=== PATIENT | male | born 1950 | race Caucasian/White ===

== ENCOUNTER 2016-10-16 16:38 | Inpatient (IN) | payer MEDICARE ==
[~2016-10-16] VITALS: Ht 172.7 cm; Wt 92.3 kg
[2016-10-16 17:52] LABS: HEMOGLOBIN 12.7 g/dL (13.5-17.5); MCH 32.5 pg (26.0-34.0); MCHC 34.3 g/dL (31.0-37.0); MCV 94.6 fL (80.0-100.0); MEAN PLATELET VOLUME 11.5 fL (7.4-10.4); RBC 3.91 10x6/uL (4.20-6.10); RDW 12.5 % (11.5-14.5); WBC 14.9 10x3/uL (4.8-10.8)
[2016-10-16 17:54] LABS: PLATELET COUNT 285 10x3/uL (130-400)
[2016-10-16] MEDS ORDERED: TYLENOL W/CODEI1 TAB PO (18:00)
[2016-10-16] MEDS ORDERED: LIPITOR20 MG PO (18:01)
[2016-10-16] MEDS ORDERED: NEURONTIN600 MG PO (18:02)
[2016-10-16] MEDS ORDERED: GLUCOPHAGE1000 MG PO (18:02)
[2016-10-16] MEDS ORDERED: GLUCOTROL ER2.5 MG PO (18:03)
[2016-10-16 18:04] LABS: ANION GAP 17.9 mmol/L (8-16); CALCIUM 9.3 mg/dL (8.5-10.1); CARBON DIOXIDE 23.9 mmol/L (21.0-32.0); CREATININE - SERUM 1.2 mg/dL (0.6-1.3); POTASSIUM - SERUM 4.8 mmol/L (3.5-5.1)
[2016-10-16] MEDS ORDERED: LOPID600 MG PO (18:04)
[2016-10-16] MEDS ORDERED: TRADJENTA5 MG PO (18:04)
[2016-10-16] MEDS ORDERED: BAYER CHEWABLE81 MG PO (18:04)
[2016-10-16 18:14] VITALS: BP 162/74; Ht 172.7 cm; Wt 92.3 kg
[2016-10-16 19:02] LABS: LYMPHOCYTES 16 % (15-50); MONOCYTES 4 % (2-11); NEUTROPHILS 80 % (40-80); PLATELET ESTIMATE NORMAL
--- NOTE | 2016-10-16 19:49 | NUR ---
PATIENT CURRENTLY RESTING IN HIS BED, WATCHING TV. IVF AND ROCEPHIN INFUSING TO THE LEFT FA IV. IT WAS INITIATED ON THE SECOND ATTEMPT. 20G. MS GIVEN PER REQUEST FOR PAIN IN THE LEFT TOES. THE FOOT IS SWOLLEN AND RED WITH SOME DEEP TISSUE DAMAGE PURPLE NOTED IN THE PLANTER AREA. HE IS ALERT AND ORIENTED. FRESH WATER AND SUPPER TRAY PROVIDED. DENIED OTHER NEEDS. CALL LIGHT IS WITHIN HIS REACH AND HE VOICES UNDERSTANDING.
--- NOTE | 2016-10-16 20:25 | NUR ---
ASSESSMENT COMPLETED, NO ACUTE DISTRESS NOTED, DENIES NEEDS, CL IN REACH, WILL MONITOR
[2016-10-16 21:14] VITALS: BP 138/51
--- NOTE | 2016-10-16 22:34 | NUR ---
MEDS GIVEN PER MAR, CHARISSA WELL, CL IN REACH, WILL MONITOR
--- NOTE | 2016-10-17 01:15 | NUR ---
RESTING WITH EYES CLOSED, RESP WITH EASE, NO ACUTE DISTRESS NOTED, CL IN REACH
[2016-10-17 05:28] LABS: BASOPHILS 0.4 % (0.0-2.0); EOSINOPHILS 2.1 % (0-7); HEMATOCRIT 33.3 % (42.0-54.0); HEMOGLOBIN 11.1 g/dL (13.5-17.5); IMMATURE GRANULOCYTES 0.3 % (0-5); LYMPHOCYTES 19.3 % (15-50); MCH 31.1 pg (26.0-34.0); MCHC 33.3 g/dL (31.0-37.0); MCV 93.3 fL (80.0-100.0); MEAN PLATELET VOLUME 10.9 fL (7.4-10.4); MONOCYTES 11.6 % (2-11); NEUTROPHILS 66.3 % (40-80); PLATELET COUNT 293 10x3/uL (130-400); RBC 3.57 10x6/uL (4.20-6.10); RDW 12.2 % (11.5-14.5); WBC 13.6 10x3/uL (4.8-10.8)
[2016-10-17 05:46] LABS: ALBUMIN 2.6 g/dL (3.4-5.0); ANION GAP 16.6 mmol/L (8-16); BILIRUBIN - TOTAL 0.3 mg/dL (0.2-1.3); CALCIUM 8.7 mg/dL (8.5-10.1); CARBON DIOXIDE 21.8 mmol/L (21.0-32.0); CREATININE - SERUM 1.3 mg/dL (0.6-1.3); POTASSIUM - SERUM 4.4 mmol/L (3.5-5.1); PROTEIN - SERUM 6.9 g/dL (6.4-8.2)
--- NOTE | 2016-10-17 07:00 | NUR ---
AWAKE AND ALERT AT THIS TIME. SITTING UP IN BED. PROVIDED WITH FRESH COFFEE. DENIES FURTHER NEEDS. WILL CONTINUE WITH PLAN OF CARE.
[2016-10-17] MEDS ORDERED: ACETAMINOPHEN325 MG PO (08:28)
[2016-10-17 08:29] VITALS: BP 123/61
--- NOTE | 2016-10-17 09:04 | NUR ---
SCHEDULED MEDICATIONS ADMINSITERED AT THIS TIME. PT C/O PAIN 6/10 IN LEFT FOOT. FOOT IS RED AND WARM TO TOUCH WITH PUNCTURE SITE ON BOTTOM OF THE LEFT FOOT. UNABLE TO OBTAIN A WOUND CULTURE WOUND IS CLOSED. PT REQUESTING TYENOL HE TAKES ORDERED AT HOME FOR PAIN. EXPLAINED TO PT I WOULD LET THE DR OR NURSE PRACTITIONER KNOW SOON THEY STARTED TO ROUND. PT VERBALIZED UNDERSTANDING. ASSESSMENT PERFORMED PER FLOWSHEET. CALL LIGHT IN REACH, WILL CONTINUE WITH PLAN OF CARE. PT AMBULATES INDEPENDENTLY AND SELF POSITIONS FOR COMFORT.
--- NOTE | 2016-10-17 09:10 | NUR ---
Patient Name: LAURA LEON Admission Status: Urgent Accout number: [id number] Admission Date: 10-16-2016 : 1950 Admission Diagnosis: Attending: WILLIE Current LOS: 1 Anticipated DC Date: 10-19-2016 Planned Disposition: Home Primary Insurance: [employer] CHOICE PPO [employer] Discharge Planning Comments: CM MET WITH PATIENT REGARDING D/C NEEDS AND PLANS. PATIENT STATED HE TAKES CARE OF AND LIVES WITH A 89 YEAR OLD DEMENTIA PATIENT. PATIENT STATED THERE ARE NO STEPS OR STAIRS AT THE HOME. PATIENT IS INDEPENDENT WITH HIS CARE AND HAS A WALKER, CANE, BS COMMODE AND GLUCOMETER AT HOME. PATIENT STATED HE TAKES HIS BLOOD SUGAR 4 X A DAY. PATIENTS PCP IS DOCTOR BROOKS AND PHARMACY IS [facility] ON [address]. PATIENT DOES NOT THINK HE WILL NEED HOME HEALTH. CM WILL CONTINUE TO FOLLOW PATIENT WITH D/C NEEDS AND PLANS. PCP DR. BROOKS [facility] ([address]) [phone] LEWIS PAULA (DAUGHTER) [phone] Business Practices Supervisor: Sharee Keenan Is the patient Alert and Oriented? Yes 0 * How many steps to enter\exit or inside your home? 0 0 * PCP DR. BROOKS 0 * Pharmacy [facility] 0 * Preadmission Environment Home with Family 0 * ADLs Independent 0 * Equipment Bedside Commode Cane Glucometer Walker 0 * List name and contact numbers for known caregivers / representatives who currently or will assist patient after discharge: LEWIS PAULA (DAUGHTER) [phone] * Community resources currently utilized None 0 * Additional services required to return to the preadmission environment? Yes 0 * Can the patient safely return to the preadmission environment? Yes 0 * Has this patient been hospitalized within the prior 30 days at any hospital? No 0 Grand Total: 0
[2016-10-17 12:13] VITALS: BP 138/65
--- NOTE | 2016-10-17 12:15 | NUR ---
FSBS 203 AT THIS TIME. INSULIN ADMINISTERED PER SLIDING SCALE. TYLENOL 650MG ADMINISTERED FOR PAIN 6/10 IN THE LEFT FOOT. DENIES FURTHER NEEDS AT PRESENT TIME. CALL LIGHT IN REACH, WILL CONTINUE WITH PLAN OF CARE.
--- NOTE | 2016-10-17 14:05 | NUR ---
WOUND CARE CONSULT: NOTED WOUND TO PLANTAR AREA OF LEFT FOOT. PT STATES HE STEPPED ON A NAIL AND DID NOT REALIZE IT FOR MANY HOURS. THE WOUND MEASURES 0.5CM X 0.4CM X 1.5CM X 1.5CM FROM 12-12 OCLOCK. SMALL AMOUNT OF BLOODY DRAINAGE NOTED. 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 CULTURED WOUND. COVERED WITH GAUZE AND SECURED WITH TAPE. PT TOLERATED WELL.
--- NOTE | 2016-10-17 14:49 | NUR ---
PRN DILAUDID 1MG ADMININSTERED PER ORDER AT THIS TIME FOR PAIN. PT DENIES FURTHER NEEDS. WILL CONTINUE WITH PLAN OF CARE.
--- NOTE | 2016-10-17 15:03 | NUR ---
NUTRITION MONITORING & EVAL SPOKE WITH PT RE:DM DIET EDUCATION. PT STATES HE HAS BEEN DIABETIC FOR ~30 YRS. HAS HAD PRIOR DIET EDU. DOES NOT WISH ADDITIONAL LITERATURE. HAS NO QUESTIONS AT THIS TIME. CURRENTLY ASSESSED AT LOW NUTRITIONAL RISK. RD FOLLOWING
[2016-10-17 16:24] VITALS: BP 118/63
--- NOTE | 2016-10-17 16:30 | NUR ---
PRN TYLENOL ADMINISTERED AT THIS TIME PER ORDER FOR PAIN 02/23. FAMILY AT BEDSIDE. DENIES FURTHER NEEDS. WILL CONTINUE WITH PLAN OF CARE.
--- NOTE | 2016-10-17 19:10 | NUR ---
BEDSIDE REPORT RECEIVED AND CARE OF PT ASSUMED. PT LYING IN SEMI HDEZ'S POSITION WATCHING TV. IV IN LEFT FA PATENT WITH NS INFUSING AT KVO. DRESSING ON LEFT FOOT CLEAN AND DRY. WILL MONITOR CLOSLEY FOR NEEDS.
--- NOTE | 2016-10-17 19:30 | NUR ---
HS SNACK GIVEN: HOT TEA , WILL CRACKERS AND PEANUT BUTTER.
[2016-10-17 20:00] VITALS: BP 129/57
--- NOTE | 2016-10-17 20:30 | NUR ---
HS MEDICATIONS GIVEN. FSBS 165 AT THIS CHECK, AND PT REFUSED SLIDING SCALE.
[2016-10-18 05:00] VITALS: BP 123/56
--- NOTE | 2016-10-18 05:01 | NUR ---
ALL NEEDS MET DURING SHIFT. CONTINUE PLAN OF CARE.
[2016-10-18 05:37] LABS: BASOPHILS 0.3 % (0.0-2.0); EOSINOPHILS 3.2 % (0-7); HEMATOCRIT 35.1 % (42.0-54.0); HEMOGLOBIN 11.8 g/dL (13.5-17.5); IMMATURE GRANULOCYTES 0.4 % (0-5); MCH 31.5 pg (26.0-34.0); MCHC 33.6 g/dL (31.0-37.0); MCV 93.6 fL (80.0-100.0); MEAN PLATELET VOLUME 10.8 fL (7.4-10.4); MONOCYTES 9.1 % (2-11); PLATELET COUNT 300 10x3/uL (130-400); RBC 3.75 10x6/uL (4.20-6.10); RDW 12.3 % (11.5-14.5); WBC 10.6 10x3/uL (4.8-10.8)
[2016-10-18 05:57] LABS: ALBUMIN 2.4 g/dL (3.4-5.0); ANION GAP 15.1 mmol/L (8-16); BILIRUBIN - TOTAL 0.22 mg/dL (0.2-1.3); CALCIUM 8.9 mg/dL (8.5-10.1); CREATININE - SERUM 1.2 mg/dL (0.6-1.3); POTASSIUM - SERUM 4.1 mmol/L (3.5-5.1); PROTEIN - SERUM 7.8 g/dL (6.4-8.2)
--- NOTE | 2016-10-18 07:42 | NUR ---
PATIENT RESTING IN BED. ALERT/OREINT X4. NS AT 30CC/HR IN LEFT FOREARM PHERIAL LINE. LEFT LEG CELLULITIES. SWELLING, REDNESS NOTED
[2016-10-18 08:11] VITALS: BP 121/67
[2016-10-18 11:40] VITALS: BP 143/75
--- NOTE | 2016-10-18 11:59 | NUR ---
PATIENT TAKEN DOWN FOR MRI OF FOOT.
--- NOTE | 2016-10-18 12:43 | NUR ---
QUIET IN ROOM AT PRESENT DENIES ANY NEEDS AT PRESENT RESP EVEN AND UNLABORED AT PRESENT.
--- NOTE | 2016-10-18 12:45 | NUR ---
PATIENT BACK FROM MRI. GLUCOSE LEVEL 199. FOUR UNITS OF SLIDING SCALE INSULIN GIVEN
[2016-10-18 16:13] VITALS: BP 148/72
--- NOTE | 2016-10-18 17:00 | NUR ---
GLUCOSE LEVEL 111. NO SLIDING SCALE INSULIN GIVEN
--- NOTE | 2016-10-18 20:00 | NUR ---
ASSESSMENT PER FLOWSHEET. IV PATENT LEFT FOREARM OF NS AT [facility]. BANDAIDE DRESSING TO BOTTOM OF LEFT FOOT. STATES STEPPED ON A NAIL. LEFT LOWER LEG WITH REDNESS AND DISCOLORATION OF SKIN.
--- NOTE | 2016-10-18 20:20 | NUR ---
C/O PAIN LEFT FOOT RATES LEVEL #5. DILAUDID 1MG IVP GIVEN FOR PAIN CONTROL.
[2016-10-18 21:00] VITALS: BP 128/57
--- NOTE | 2016-10-18 21:00 | NUR ---
MEDS GIVEN PER FLOWSHEET. JRSB=[id number] NO COVERAGE NEEDED.
--- NOTE | 2016-10-19 | NUR ---
EYES CLOSED RESPIRATIONS WITH EASE AND UNLABORED.
--- NOTE | 2016-10-19 02:39 | NUR ---
C/O PAIN LEFT FOOT. DILAUDID 1MG IVP GIVEN FOR PAIN CONTROL.
--- NOTE | 2016-10-19 04:30 | NUR ---
RESTING QUIETLY DENIES NEEDS.
[2016-10-19 05:00] VITALS: BP 134/71
[2016-10-19 05:54] LABS: BASOPHILS 0.3 % (0.0-2.0); EOSINOPHILS 3.2 % (0-7); HEMATOCRIT 34.3 % (42.0-54.0); HEMOGLOBIN 11.5 g/dL (13.5-17.5); IMMATURE GRANULOCYTES 0.4 % (0-5); LYMPHOCYTES 21.9 % (15-50); MCH 31.6 pg (26.0-34.0); MCHC 33.5 g/dL (31.0-37.0); MCV 94.2 fL (80.0-100.0); MEAN PLATELET VOLUME 10.6 fL (7.4-10.4); MONOCYTES 8.9 % (2-11); NEUTROPHILS 65.3 % (40-80); PLATELET COUNT 315 10x3/uL (130-400); RBC 3.64 10x6/uL (4.20-6.10); RDW 12.2 % (11.5-14.5)
[2016-10-19 06:31] LABS: ALBUMIN 2.2 g/dL (3.4-5.0); ANION GAP 14.6 mmol/L (8-16); BILIRUBIN - TOTAL 0.3 mg/dL (0.2-1.3); CALCIUM 9.2 mg/dL (8.5-10.1); CARBON DIOXIDE 23.8 mmol/L (21.0-32.0); CREATININE - SERUM 1.1 mg/dL (0.6-1.3); POTASSIUM - SERUM 4.4 mmol/L (3.5-5.1); PROTEIN - SERUM 7.5 g/dL (6.4-8.2)
[2016-10-19 08:10] VITALS: BP 114/54
--- NOTE | 2016-10-19 08:14 | NUR ---
PRN DILAUDID ADMINISTERED AT THIS TIME FOR PAIN 12/24. IV TO LEFT WRIST PATENT, ASSESSMENT PERFORMED PER FLOWSHEET. CALL LIGHT IN REACH, PT SELF POSITIONS AND AMBULATED WITHOUT ASSISTANCE. DENIES FURTHER NEEDS AT PRESENT TIME. WILL CONTINUE WITH PLAN OF CARE.
--- NOTE | 2016-10-19 09:31 | NUR ---
SCHEDULED MEDICATIONS ADMINISTERED BY ELAINE ESPINOZA STUDENT WITH INSTRUCTOR AT THIS TIME.
--- NOTE | 2016-10-19 11:00 | NUR ---
DENIES WANTING TO SHOWER AT THIS TIME HE IS UNSURE IF HE WILL BE RELEASED TODAY OR NOT. DENIES FURTHER NEEDS. WILL CONTINUE WITH PLAN OF CARE.
[2016-10-19 12:05] VITALS: BP 133/68
--- NOTE | 2016-10-19 12:55 | NUR ---
PLACED IN CONTACT ISOLATION AT THIS TIME D/T WOUND CX GROWING STAPH AUREUS. CULTURE MUST BE FINAL TO R/O MRSA. EXPLAINED TO PT ISOLATION PROCEDURES. VERBALIZED UNDERSTANDING. DENIES NEEDS AT THIS TIME. CALL LIGHT IN REACH, WILL CONTINUE WITH PLAN OF CARE.
[2016-10-19] MEDS ORDERED: TRULICITY0.75 MG/0. SC (12:56)
--- NOTE | 2016-10-19 13:01 | NUR ---
PRN TYLENOL ADMINISTERED AT THIS TIME PER ORDER. DENIES FURTHER NEEDS. CALL LIGHT IN REACH, WILL CONTINUE WITH PLAN OF CARE.
[2016-10-19 16:14] VITALS: BP 135/67
--- NOTE | 2016-10-19 16:25 | NUR ---
UP IN SHOWER AT THIS TIME. BEDDING CHANGED PER ABBY SOLER. WILL CONTINUE WITH PLAN OF CARE.
--- NOTE | 2016-10-19 17:43 | NUR ---
PRN DILAUDID ADMINISTERED PER ORDER FOR PAIN. DENIES FURTHER NEEDS. REMAINS IN CONTACT ISOLATION, CALL LIGHT IN REACH. WILL CONTINUE WITH PLAN OF CARE.
[2016-10-19 19:00] VITALS: BP 147/77
--- NOTE | 2016-10-20 04:04 | NUR ---
PT LAYING IN BED NO DISTRESS OBSERVED LEFT FOOT PUNCTURE WOUND INBETWEEN 1ST AND 2ND TOE NO DRAINAGE OBSERVED IV ANTIBX ADMIN ORDERED TEFLERO DUE AT 0200 UNAVALIABLE FROM PHARM WILL CONTINUE WITH NEXT DOSE. CALL LIGHT IN REACH SRX2 BED LOW AND LOCEKD WILL MONITOR
[2016-10-20 06:07] LABS: BASOPHILS 0.5 % (0.0-2.0); EOSINOPHILS 2.9 % (0-7); HEMATOCRIT 34.4 % (42.0-54.0); HEMOGLOBIN 11.7 g/dL (13.5-17.5); IMMATURE GRANULOCYTES 0.3 % (0-5); LYMPHOCYTES 25.2 % (15-50); MCH 32.1 pg (26.0-34.0); MCV 94.2 fL (80.0-100.0); MEAN PLATELET VOLUME 10.7 fL (7.4-10.4); MONOCYTES 7.6 % (2-11); NEUTROPHILS 63.5 % (40-80); PLATELET COUNT 307 10x3/uL (130-400); RBC 3.65 10x6/uL (4.20-6.10); RDW 12.5 % (11.5-14.5); WBC 11.8 10x3/uL (4.8-10.8)
[2016-10-20 06:37] LABS: ALBUMIN 2.3 g/dL (3.4-5.0); ALKALINE PHOSPHATASE 52 U/L (46-116); ALT (SGPT) 29 U/L (10-68); BILIRUBIN - TOTAL 0.21 mg/dL (0.2-1.3); CALC OSMOLALITY 279 mosm/kg (275-300); CALCIUM 8.9 mg/dL (8.5-10.1); CARBON DIOXIDE 25.5 mmol/L (21.0-32.0); CHLORIDE - SERUM 103 mmol/L (98-107); GLUCOSE 145 mg/dL (74-106); POTASSIUM - SERUM 4.2 mmol/L (3.5-5.1); SODIUM 138 mmol/L (136-145); UREA NITROGEN 16 mg/dL (7-18); eGFR NON AFRICAN AMERICAN 79 mL/min (90-120)
--- NOTE | 2016-10-20 08:00 | NUR ---
PT MEDS ADMINISTERED PER eMAR, NO COMPLAINTS AT THIS TIME, CALL LIGHT WITHIN REACH, WILL CONTINUE TO MONITOR.
--- NOTE | 2016-10-20 08:34 | NUR ---
AWAKE AND ALERT. ORIENTED X3. C/O PAIN TO BOTH FEET LEVEL 5. REQUESTED AND GIVEN 1MG DILAUDID SLOW IVP FOR SAME. WILL MONITOR.
--- NOTE | 2016-10-20 09:00 | NUR ---
PT AWAKE AND ORIENTED X3, PT ASSESSMENT COMPLETE, PAIN LEVEL NOW A 2, PT RESTING IN BED, NO COMPLAINTS AT THIS TIME, LEFT NUT PACKER AND SORE, ISOLATION PERCAUTIONS FOR MRSA IN WOUND ON LEFT FOOT, CALL LIGHT WITHIN REACH, WILL CONTINUE TO MONITOR.
--- NOTE | 2016-10-20 12:22 | NUR ---
PT UP TO BATHROOM, DENIES NEEDS. WILL CONTINUE TO MONITOR
[2016-10-20 13:04] VITALS: BP 125/65
--- NOTE | 2016-10-20 15:13 | NUR ---
PT RESTINING IN BED, DENIES NEEDS AT THIS TIME. WILL CONTINUE TO MONITOR
--- NOTE | 2016-10-20 15:20 | NUR ---
DR Bennett requested CM to arrange for home IV antibiotic therapy. JAMEE advised the patient has a managed Medicare provider. Will require preauthorization for Home IV antibiotic therapy. CM will initiate contact w/ home health and infusion provider. is planning for Saturday discharge. Awaiting sensitivities from cultures.
[2016-10-20 16:03] VITALS: BP 152/71
--- NOTE | 2016-10-20 18:12 | NUR ---
PT RESTING IN BED, DENIES NEEDS AT THIS TIME, CALL LIGHT IN REACH
[2016-10-20 20:38] VITALS: BP 148/71
--- NOTE | 2016-10-20 23:53 | NUR ---
PT ASSESSMENT COMPLETED AT THIS TIME PT LAYING IN BED PT DENIES PAIN NEEDS OR WANTS AT THIS TIME LEFT FOOT PEDAL PULSE INTACT AND STRONG DISCOLORATION NOTED TO LEFT FOOT BY 1ST AND 2ND TOE PT UNABLE TO MOVE TOES OF LEFT FOOT AT THIS TIME FOOT IS WARM TO TOUCH AND CAP REFILL <2 NO DISTRESS OBSERVED CALL LIGHT IN REACH SRX2 BED LOW AND LOCKED WILL MONITOR
[2016-10-21] VITALS: BP 154/72
[2016-10-21 04:00] VITALS: BP 138/70
[2016-10-21 05:47] LABS: BASOPHILS 0.3 % (0.0-2.0); EOSINOPHILS 3.1 % (0-7); HEMOGLOBIN 11.7 g/dL (13.5-17.5); IMMATURE GRANULOCYTES 0.2 % (0-5); LYMPHOCYTES 28.4 % (15-50); MCH 31.4 pg (26.0-34.0); MCHC 33.4 g/dL (31.0-37.0); MCV 93.8 fL (80.0-100.0); MEAN PLATELET VOLUME 10.5 fL (7.4-10.4); PLATELET COUNT 329 10x3/uL (130-400); RBC 3.73 10x6/uL (4.20-6.10); RDW 12.4 % (11.5-14.5); WBC 11.8 10x3/uL (4.8-10.8)
[2016-10-21 06:15] LABS: ALBUMIN 2.3 g/dL (3.4-5.0); ALKALINE PHOSPHATASE 56 U/L (46-116); ALT (SGPT) 26 U/L (10-68); CALC OSMOLALITY 278 mosm/kg (275-300); CARBON DIOXIDE 25.4 mmol/L (21.0-32.0); CHLORIDE - SERUM 102 mmol/L (98-107); GLUCOSE 103 mg/dL (74-106); POTASSIUM - SERUM 4.1 mmol/L (3.5-5.1); PROTEIN - SERUM 8.3 g/dL (6.4-8.2); SODIUM 139 mmol/L (136-145); UREA NITROGEN 14 mg/dL (7-18); VANCOMYCIN - PEAK 27.6 ug/mL (18.0-26.0); eGFR NON AFRICAN AMERICAN 79 mL/min (90-120)
--- NOTE | 2016-10-21 07:45 | NUR ---
PT UP TO SHOWER. DENIES NEEDS. WILL CONTINUE TO MONITOR.
--- NOTE | 2016-10-21 08:20 | NUR ---
PT ASSESSMENT COMPLETE, LUNGS CLEAR, PT STATES HE CANNOT MOVE TOES ON LEFT FOOT BECAUSE OF PUNCTURE WOUND, TENDERNESS TO LEFT FOOT, CONTACT PRECAUTIONS, DENIES NEEDS, CALL LIGHT IN REACH, WILL CONTINUE TO MONITOR.
[2016-10-21 09:00] VITALS: BP 158/77
--- NOTE | 2016-10-21 09:50 | NUR ---
SCHEDULED PROTONIX ADMINSITERED SLOW IV PUSH OVER TWO MINUTES TO PT'S LEFT FOREARM IV. IV PATENT WITH NO S/S OF INFILTRATION PRESENT. REMAINS IN CONTACT ISOLATION FOR MRSA IN LEFT FOOT WOUND. LEFT FOOT IS REDDENED AND PURPLE WITH TRACE AMOUNT OF SWELLING. LIMITED ROM TO TOES IN THE LEFT FOOT. NOTIFIED KENIA KIDD WITH DR HINES OF THIS. AMBULATES AND SELF POSITIONS IN BED INDEPENDENTLY. PT REFUSES SCD'S, BUT IS ON LOVENOX. CALL LIGHT IN REACH, SRX2 WITH BED IN LOWEST POSITION AND LOCKED. WILL CONTINUE WITH PLAN OF CARE.
[2016-10-21 12:45] VITALS: BP 127/66
--- NOTE | 2016-10-21 14:53 | NUR ---
RESTING IN BED WATCHING TV, PAIN AT A LEVEL 4/10, TYLENOL GIVEN PER ORDER, WILL CONTINUE TO MONITOR, CALL LIGHT IN REACH
[2016-10-21 16:28] VITALS: BP 143/63
--- NOTE | 2016-10-21 16:59 | NUR ---
PT BLOOD GLUCOSE WAS 221, PT GOT 8 UNITS PER SLIDING SCALE
[2016-10-21 19:00] VITALS: BP 167/77
--- NOTE | 2016-10-21 19:24 | NUR ---
Spoke with patient regarding home health providers. He had no preference except that the provider be in-network. Reviewed providers. [facility] selected as they have contract w/ [employer]. Faxed referral this pm for review and insurance auth in the AM. Spoke with on-call lumber sales supervisor earlier. Patient has a peripheral IV site. Question if patient will have a PICC inserted? No order at this time. Will need specific iv antibiotic order Vancomycin w/ dosage, frequency, route and length of service. Order presently reads home health / ivab. POC signed and on chart.
--- NOTE | 2016-10-21 22:53 | NUR ---
PT LAYING IN BED NO DISTRESS OBSERVED CALL LIGHT IN REACH SRX2 GLUCOSE 80 NO COVERAGE PER SLIDING SCALE RESPERATIONS EVEN AND UNLABORED ON ROOM AIR PEDAL PULSES INTACT AND STRONG PT DENIES NEEDS WANTS OR PAIN AT THIS TIME WILL MONITOR
[2016-10-22] VITALS: BP 140/64
[2016-10-22 04:00] VITALS: BP 143/63
--- NOTE | 2016-10-22 05:43 | NUR ---
PT LAYING IN BED NO DISTRESS OBSERVED CALL LIGHTIN REACH SRX2 WILL MONITOR
--- NOTE | 2016-10-22 07:40 | NUR ---
PATIENT IS AWAKE AND ALERT, RESTING WITH HOB UP 30 DEGREES. HE STATES THAT THE PAIN IN HIS FOOT IS A 2-3 UNTIL HE GETS UP TO AMBULATE AND THE PAIN GOES UP TO A 8 AND STAYS THERE FOR ABOUT AN HOUR UNTIL IT EASES OFF. HE STATES THAT THE MORPHINE DOESN'T REALLY HELP HIS PAIN AND THE TYLENOL IS WHAT HE HAS BEEN TAKING AND THIS IS OK. HE DID NOT KNOW WHAT THE ISOLATION WAS FOR. EDUCATED. HE STATES THAT THE FOOT HAS MUCH IMPROVED DURING HIS ADMISSION HERE AND HE WANTS TO GO HOME TODAY.
[2016-10-22 08:59] VITALS: BP 144/73
--- NOTE | 2016-10-22 10:28 | NUR ---
PATIENT CONTINUES TO RECLINE AND BE WITHOUT COMPLAINTS/ NEEDS AT THIS TIME. CALL LIGHT IS WITHIN REACH.
[2016-10-22 12:32] VITALS: BP 157/81
[2016-10-22] MEDS ORDERED: VANCOMYCIN 1 GM/1 G1 IV (12:34)
--- NOTE | 2016-10-22 13:22 | NUR ---
CM REASSESSMENT NOTE: PATIENT SIGNED THE [place] FORM WITH [facility] AND THEY ARE AWARE HE SHOULD D/C TODAY. PATIENT WILL HAVE IV ABX THERAPY PROVIDED BY [facility]. PATIENT HAD A MIDLINE ACCESS PUT IT TODAY FOR DISCHARGE.
[2016-10-22 16:08] VITALS: BP 122/71
--- NOTE | 2016-10-22 17:10 | NUR ---
DISCUSSED DISCHARGE INSTREUCTIONS WITH PADMINI. HE DENIES QUESTIONS. HE HAS DISCUSSED HIS PLAN OF CARE AT LENGTH WITH THE FIRST AID INSTRUCTOR. THE RIGHT MIDLINE IV IS PATENT, FLUSHED, CLAMPED AND READY TO GO.
== END 2016-10-22 17:20 | disposition home health service (06) | DRG 603 ==
LOC: D.MS 16:38
PROVIDERS: Family Medicine Adult Medicine; ADMIT Family Medicine
PROC: 05HB33Z Insertion of Infusion Device into Right Basilic Vein, Percutaneous Approach (ICD-10-PCS; principal; 2016-10-22)
PROC: B54MZZA Ultrasonography of Right Upper Extremity Veins, Guidance (ICD-10-PCS; 2016-10-22)
DX: L03.116 Cellulitis of left lower limb (principal); E87.1 Hypo-osmolality and hyponatremia; E11.40 Type 2 diabetes mellitus with diabetic neuropathy, unspecified; A49.01 Methicillin susceptible Staphylococcus aureus infection, unspecified site; E78.5 Hyperlipidemia, unspecified

== ENCOUNTER → 2018-03-18 18:24 | Outpatient (CLI) | payer MEDICARE ==
[2016-10-16 18:14] VITALS: BMI 30.9
[~2018-03-18 18:24] MED LIST: ACETAMINOPHEN325 MG PO; BACTRIM DS TABL1 TAB PO; BAYER CHEWABLE81 MG PO; FLAGYL500 MG PO; GLUCOPHAGE1000 MG PO; GLUCOTROL ER2.5 MG PO; HYDROCODON-ACE1 EAC7 PO; LIPITOR20 MG PO; LOPID600 MG PO; NEURONTIN600 MG PO; TRADJENTA5 MG PO; TRULICITY0.75 MG/0. SC; TYLENOL W/CODEI1 TAB PO; VANCOMYCIN 1 GM/1 G1 IV
== END | disposition home or self-care (01) ==
LOC: D.LABREF 18:24
PROVIDERS: Podiatrist Foot & Ankle Surgery
DX: E11.621 Type 2 diabetes mellitus with foot ulcer (principal)

== ENCOUNTER 2018-04-07 17:22 | Inpatient (IN) | payer MEDICARE ==
[~2018-04-07] VITALS: Ht 172.7 cm; Wt 94.5 kg
--- NOTE | ~2018-04-07 | MORECARE ---
CASE MANAGEMENT DISCHARGE SUMMARY PATIENT: LAURA LEON UNIT: [id number] ADM DATE: 04/07/18 AGE: 68 : [birth year] SEX: M ROOM/BED: D.2205 AUTHOR: CASE, RESISTOR COATER PHYSICIAN: REFERRING PHYSICIAN: MALVIN CUEVAM DATE OF SERVICE: 04/07/18 Discharge Plan Patient Name: LAURA LEON Facility: [facility]:[place] : 1950 Planned Disposition: Home Anticipated Discharge Date: Discharge Date: 04/15/2018 Expected LOS: 0 Initial Reviewer: [email or web address] Initial Review Date: 04/10/2018 Generated: 04/17/18 11:24 am Comments DCP- Discharge Planning Updated by [email or web address]: Tania Benson on 04/10/18 3:[address] Patient Name: LAURA LEON Admission Status: Urgent Accout number: [id number] Admission Date: 04-07-2018 : 1950 Admission Diagnosis:INFECTION FOLLOWING A PROCEDURE, INITIAL ENCOUNTER Attending: MALVIN CUEVA Current LOS: 3 Anticipated DC Date: Planned Disposition: Home Primary Insurance: [employer] CHOICE PPO [facility] Discharge Planning Comments: CM met with patient to assess discharge planning needs. Patient stated that he is independent with his care at home where he plans on returning. He stated that he would take a Taxi to get home. He has everything he needs. There are 3 steps to his home. He has a bedside commode, glucometer, crutch, walker, wheelchair. He has refused home health and does not use any community resources. CM will continue to follow and assist with DC planning as needed. PCP: iveth veronica on [employer] [address] [employer] [address] [employer] nyasia beltran [phone] Insulation Batting Machine Operator: Tania Benson DCPIA - Discharge Planning Initial Assessment Updated by [email or web address]: Tania Benson on 04/10/18 4:08 pm * Is the patient Alert and Oriented? Yes * How many steps to enterexit or inside your home? * PCP IVETH * [facility] * Preadmission Environment Home with Family * ADLs Independent * Equipment Bedside Commode Cane Glucometer Rolling Walker Walker Wheelchair * List name and contact numbers for known caregivers / representatives who currently or will assist patient after discharge: [phone] NYASIA BELTRAN * Verbal permission to speak to the caregivers and representatives has been obtained from the patient. N/A * Additional services required to return to the preadmission environment? No * Can the patient safely return to the preadmission environment? Yes * Has this patient been hospitalized within the prior 30 days at any hospital? No Patient Name: LAURA LEON Page [id number] All edits/amendments must be made on the electronic document DICTATION DATE: 04/17/18 1024 MOTOR OPERATOR: 04/17/18 1024 RPT#: [id number] DC DATE:04/15/18 STATUS: DIS IN [facility] [address] [place] [address] END OF REPORT
[~2018-04-07 17:22] MED LIST changes: -BACTRIM DS TABL1 TAB PO; -FLAGYL500 MG PO; -HYDROCODON-ACE1 EAC7 PO
[2018-04-08] VITALS (8 sets, daily range): BP systolic 112–155; BP diastolic 50–74; Ht 172.7 cm; Wt 94.5 kg
[2018-04-08 05:49] LABS: BASOPHILS 0.3 % (0-2); HEMATOCRIT 29.2 % (42.0-54.0); HEMOGLOBIN 9.6 g/dL (13.5-17.5); IMMATURE GRANULOCYTES 0.1 % (0-5); LYMPHOCYTES 26.2 % (15-50); MCHC 32.9 g/dL (31.0-37.0); MCV 94.2 fL (80.0-100.0); MEAN PLATELET VOLUME 10.2 fL (7.4-10.4); MONOCYTES 9.1 % (2-11); NEUTROPHILS 62.3 % (40-80); PLATELET COUNT 275 10x3/uL (130-400); RDW 12.8 % (11.5-14.5); WBC 9.7 10x3/uL (4.8-10.8)
[2018-04-08 06:11] LABS: ANION GAP 12.5 mmol/L (8-16); CALCIUM 8.6 mg/dL (8.5-10.1); CARBON DIOXIDE 25.8 mmol/L (21.0-32.0); CREATININE - SERUM 1.3 mg/dL (0.6-1.3); POTASSIUM - SERUM 4.3 mmol/L (3.5-5.1)
[2018-04-09 04:00] VITALS: BP 126/57
[2018-04-09 05:35] LABS: BASOPHILS 0.3 % (0-2); EOSINOPHILS 2.9 % (0-7); HEMATOCRIT 28.4 % (42.0-54.0); HEMOGLOBIN 9.3 g/dL (13.5-17.5); IMMATURE GRANULOCYTES 0.1 % (0-5); MCHC 32.7 g/dL (31.0-37.0); MCV 94.7 fL (80.0-100.0); MEAN PLATELET VOLUME 10.3 fL (7.4-10.4); MONOCYTES 9.7 % (2-11); PLATELET COUNT 295 10x3/uL (130-400); RDW 13.1 % (11.5-14.5)
[2018-04-09 05:54] LABS: ANION GAP 12.4 mmol/L (8-16); CALCIUM 8.2 mg/dL (8.5-10.1); CARBON DIOXIDE 27.3 mmol/L (21.0-32.0); CREATININE - SERUM 1.1 mg/dL (0.6-1.3); POTASSIUM - SERUM 4.7 mmol/L (3.5-5.1)
[2018-04-09 08:07] VITALS: BP 99/54
[2018-04-09 13:03] VITALS: BP 118/53
[2018-04-09 15:41] VITALS: BP 113/41
[2018-04-09 19:48] VITALS: BP 117/64
[2018-04-09 23:54] VITALS: BP 118/57
[2018-04-10] VITALS (11 sets, daily range): BP systolic 100–161; BP diastolic 59–77
[2018-04-10 06:26] LABS: ANION GAP 13.9 mmol/L (8-16); CALCIUM 8.2 mg/dL (8.5-10.1); CARBON DIOXIDE 27.3 mmol/L (21.0-32.0); CREATININE - SERUM 1.2 mg/dL (0.6-1.3); POTASSIUM - SERUM 4.2 mmol/L (3.5-5.1)
[2018-04-10 06:43] LABS: BASOPHILS 0.3 % (0-2); EOSINOPHILS 3.3 % (0-7); HEMATOCRIT 28.2 % (42.0-54.0); HEMOGLOBIN 9.2 g/dL (13.5-17.5); IMMATURE GRANULOCYTES 0.2 % (0-5); MCHC 32.6 g/dL (31.0-37.0); MCV 94.9 fL (80.0-100.0); MEAN PLATELET VOLUME 10.3 fL (7.4-10.4); MONOCYTES 10.1 % (2-11); NEUTROPHILS 55.1 % (40-80); PLATELET COUNT 311 10x3/uL (130-400); RBC 2.97 10x6/uL (4.20-6.10); RDW 13.2 % (11.5-14.5); WBC 9.9 10x3/uL (4.8-10.8)
[2018-04-11 05:19] LABS: BASOPHILS 0.3 % (0-2); EOSINOPHILS 0.3 % (0-7); HEMATOCRIT 29.4 % (42.0-54.0); HEMOGLOBIN 9.5 g/dL (13.5-17.5); IMMATURE GRANULOCYTES 0.2 % (0-5); LYMPHOCYTES 17.5 % (15-50); MCH 30.5 pg (26.0-34.0); MCHC 32.3 g/dL (31.0-37.0); MCV 94.5 fL (80.0-100.0); MONOCYTES 9.4 % (2-11); NEUTROPHILS 72.3 % (40-80); PLATELET COUNT 329 10x3/uL (130-400); RBC 3.11 10x6/uL (4.20-6.10); RDW 12.9 % (11.5-14.5); WBC 11.9 10x3/uL (4.8-10.8)
[2018-04-11 05:23] LABS: ANION GAP 15.7 mmol/L (8-16); CARBON DIOXIDE 25.3 mmol/L (21.0-32.0); CREATININE - SERUM 1.1 mg/dL (0.6-1.3)
[2018-04-11 06:19] VITALS: BP 104/52
[2018-04-11 08:09] VITALS: BP 126/67
[2018-04-11 12:47] VITALS: BP 129/59
[2018-04-11 15:07] LABS: APPEARANCE CLEAR (CLEAR); COLOR YELLOW (YELLOW); NITRITE NEGATIVE (NEGATIVE); PROTEIN 1+ mg/dL (NEGATIVE); SPECIFIC GRAVITY 1.015 (1.005-1.020)
[2018-04-11 15:08] LABS: BILIRUBIN NEGATIVE (NEGATIVE); GLUCOSE NEGATIVE (NEGATIVE); KETONE NEGATIVE (NEGATIVE); UROBILINOGEN NORMAL (NORMAL)
[2018-04-11 15:09] LABS: BACTERIA FEW /hpf (NONE SEEN); RED CELLS - URINE 0-5 /hpf (0-5)
[2018-04-11 15:58] VITALS: BP 127/55
[2018-04-11 20:13] VITALS: BP 138/69
[2018-04-12 05:19] VITALS: BP 128/63
[2018-04-12 05:29] LABS: BASOPHILS 0.4 % (0-2); EOSINOPHILS 1.5 % (0-7); HEMATOCRIT 27.5 % (42.0-54.0); IMMATURE GRANULOCYTES 0.2 % (0-5); LYMPHOCYTES 19.2 % (15-50); MCH 30.9 pg (26.0-34.0); MCHC 32.7 g/dL (31.0-37.0); MCV 94.5 fL (80.0-100.0); MEAN PLATELET VOLUME 9.9 fL (7.4-10.4); MONOCYTES 10.8 % (2-11); NEUTROPHILS 67.9 % (40-80); PLATELET COUNT 353 10x3/uL (130-400); RBC 2.91 10x6/uL (4.20-6.10); WBC 13.2 10x3/uL (4.8-10.8)
[2018-04-12 05:47] LABS: ANION GAP 10.2 mmol/L (8-16); CALCIUM 8.5 mg/dL (8.5-10.1); CARBON DIOXIDE 27.6 mmol/L (21.0-32.0); CREATININE - SERUM 1.1 mg/dL (0.6-1.3); POTASSIUM - SERUM 3.8 mmol/L (3.5-5.1); VANCOMYCIN - TROUGH 16.1 ug/mL (10.0-20.0)
[2018-04-12 08:49] VITALS: BP 140/70
[2018-04-12 12:38] VITALS: BP 147/71
[2018-04-12 16:57] VITALS: BP 145/72
[2018-04-12 20:30] VITALS: BP 131/66
[2018-04-13 04:30] VITALS: BP 141/72
[2018-04-13 05:36] LABS: BASOPHILS 0.3 % (0-2); EOSINOPHILS 3.9 % (0-7); HEMATOCRIT 27.7 % (42.0-54.0); HEMOGLOBIN 8.9 g/dL (13.5-17.5); IMMATURE GRANULOCYTES 0.3 % (0-5); LYMPHOCYTES 21.2 % (15-50); MCH 30.5 pg (26.0-34.0); MCHC 32.1 g/dL (31.0-37.0); MCV 94.9 fL (80.0-100.0); MEAN PLATELET VOLUME 9.4 fL (7.4-10.4); MONOCYTES 9.8 % (2-11); NEUTROPHILS 64.5 % (40-80); PLATELET COUNT 337 10x3/uL (130-400); RBC 2.92 10x6/uL (4.20-6.10); RDW 12.9 % (11.5-14.5); WBC 10.9 10x3/uL (4.8-10.8)
[2018-04-13 06:09] LABS: ALBUMIN 1.9 g/dL (3.4-5.0); ALKALINE PHOSPHATASE 60 U/L (46-116); ALT (SGPT) 34 U/L (10-68); BILIRUBIN - TOTAL 0.35 mg/dL (0.2-1.3); CALC OSMOLALITY 272 mosm/kg (275-300); CALCIUM 8.3 mg/dL (8.5-10.1); CARBON DIOXIDE 25.2 mmol/L (21.0-32.0); CHLORIDE - SERUM 102 mmol/L (98-107); GLUCOSE 102 mg/dL (74-106); POTASSIUM - SERUM 3.7 mmol/L (3.5-5.1); PROTEIN - SERUM 7.5 g/dL (6.4-8.2); SODIUM 137 mmol/L (136-145); UREA NITROGEN 11 mg/dL (7-18); eGFR NON AFRICAN AMERICAN 79 mL/min (90-120)
[2018-04-13 09:10] VITALS: BP 140/69
[2018-04-13 14:32] VITALS: BP 141/63
[2018-04-13 17:00] VITALS: BP 167/50
[2018-04-13 21:58] VITALS: BP 143/70
[2018-04-14 05:45] LABS: BASOPHILS 0.3 % (0-2); EOSINOPHILS 2.8 % (0-7); HEMOGLOBIN 9.2 g/dL (13.5-17.5); IMMATURE GRANULOCYTES 0.2 % (0-5); LYMPHOCYTES 20.6 % (15-50); MCH 30.7 pg (26.0-34.0); MCHC 32.9 g/dL (31.0-37.0); MCV 93.3 fL (80.0-100.0); MEAN PLATELET VOLUME 10.1 fL (7.4-10.4); MONOCYTES 11.1 % (2-11); PLATELET COUNT 377 10x3/uL (130-400); RDW 12.9 % (11.5-14.5); WBC 10.5 10x3/uL (4.8-10.8)
[2018-04-14 06:15] LABS: ALKALINE PHOSPHATASE 60 U/L (46-116); ALT (SGPT) 29 U/L (10-68); BILIRUBIN - TOTAL 0.31 mg/dL (0.2-1.3); CALC OSMOLALITY 271 mosm/kg (275-300); CALCIUM 8.9 mg/dL (8.5-10.1); CARBON DIOXIDE 26.4 mmol/L (21.0-32.0); CHLORIDE - SERUM 104 mmol/L (98-107); CREATININE - SERUM 0.9 mg/dL (0.6-1.3); GLUCOSE 78 mg/dL (74-106); POTASSIUM - SERUM 3.4 mmol/L (3.5-5.1); PROTEIN - SERUM 7.7 g/dL (6.4-8.2); SODIUM 137 mmol/L (136-145); UREA NITROGEN 10 mg/dL (7-18); eGFR NON AFRICAN AMERICAN 89 mL/min (90-120)
[2018-04-14 06:35] VITALS: BP 147/64
[2018-04-14 09:12] VITALS: BP 134/86
[2018-04-14 22:56] VITALS: BP 122/54
[2018-04-15] VITALS (7 sets, daily range): BP systolic 134–151; BP diastolic 58–72
[2018-04-15 06:21] LABS: BASOPHILS 0.4 % (0-2); EOSINOPHILS 4.2 % (0-7); HEMATOCRIT 27.7 % (42.0-54.0); HEMOGLOBIN 8.8 g/dL (13.5-17.5); IMMATURE GRANULOCYTES 0.3 % (0-5); LYMPHOCYTES 32.1 % (15-50); MCH 29.9 pg (26.0-34.0); MCHC 31.8 g/dL (31.0-37.0); MCV 94.2 fL (80.0-100.0); MEAN PLATELET VOLUME 10.1 fL (7.4-10.4); MONOCYTES 8.9 % (2-11); NEUTROPHILS 54.1 % (40-80); PLATELET COUNT 384 10x3/uL (130-400); RBC 2.94 10x6/uL (4.20-6.10); RDW 13.2 % (11.5-14.5); WBC 9.6 10x3/uL (4.8-10.8)
[2018-04-15 06:51] LABS: ALBUMIN 1.9 g/dL (3.4-5.0); BILIRUBIN - TOTAL 0.22 mg/dL (0.2-1.3); CALCIUM 8.1 mg/dL (8.5-10.1); CARBON DIOXIDE 28.3 mmol/L (21.0-32.0); CREATININE - SERUM 1.1 mg/dL (0.6-1.3); POTASSIUM - SERUM 3.3 mmol/L (3.5-5.1); PROTEIN - SERUM 7.4 g/dL (6.4-8.2)
[2018-04-15] MEDS ORDERED: FLAGYL500 MG PO (11:41)
[2018-04-15] MEDS ORDERED: BACTRIM DS TABL1 TAB PO (11:41)
[2018-04-15] MEDS ORDERED: HYDROCODON-ACE1 EAC7 PO (11:42)
[2018-04-18 10:21] LABS: OVA + PARASITE EXAM Final report (())
== END 2018-04-15 13:38 | disposition home or self-care (01) | DRG 857 ==
LOC: D.SDCHOLD 17:22 → UNDOADMIN 17:22 → D.SDCHOLD 18:33 → D.MS 18:33
PROVIDERS: Family Medicine; Podiatrist Foot & Ankle Surgery
PROC: 0QBN0ZZ Excision of Right Metatarsal, Open Approach (ICD-10-PCS; principal; 2018-04-10 08:00)
PROC: 0QBN0ZZ Excision of Right Metatarsal, Open Approach (ICD-10-PCS; 2018-04-15)
PROC: 0JQQ0ZZ Repair Right Foot Subcutaneous Tissue and Fascia, Open Approach (ICD-10-PCS; 2018-04-15 08:00)
DX: T81.4XXA Infection following a procedure, initial encounter (principal); L97.419 Non-pressure chronic ulcer of right heel and midfoot with unspecified severity; L03.115 Cellulitis of right lower limb; T81.30XA Disruption of wound, unspecified, initial encounter; A04.72 Enterocolitis due to Clostridium difficile, not specified as recurrent; E11.628 Type 2 diabetes mellitus with other skin complications; E11.621 Type 2 diabetes mellitus with foot ulcer; E11.40 Type 2 diabetes mellitus with diabetic neuropathy, unspecified; A49.01 Methicillin susceptible Staphylococcus aureus infection, unspecified site; J00 Acute nasopharyngitis [common cold]; Z95.1 Presence of aortocoronary bypass graft; B95.61 Methicillin susceptible Staphylococcus aureus infection as the cause of diseases classified elsewhere

== ENCOUNTER → 2018-07-14 17:41 | Outpatient (CLI) | payer MEDICARE ==
[2018-04-08 06:39] VITALS: BMI 31.6
[~2018-07-14 17:41] MED LIST changes: +BACTRIM DS TABL1 TAB PO; +FLAGYL500 MG PO; +HYDROCODON-ACE1 EAC7 PO
== END | disposition home or self-care (01) ==
LOC: D.LABREF 17:41
DX: L03.115 Cellulitis of right lower limb (principal)

== ENCOUNTER → 2018-08-06 13:09 | Outpatient (CLI) | payer MEDICARE ==
[2018-04-08 06:39] VITALS: BMI 31.6
== END | disposition home or self-care (01) ==
LOC: D.CT 13:09
DX: I73.9 Peripheral vascular disease, unspecified (principal)

== ENCOUNTER 2018-08-25 06:09 | Outpatient (CLI) | payer MEDICARE ==
[~2018-08-25] VITALS: Ht 172.7 cm; Wt 94.5 kg
--- NOTE | ~2018-08-25 | HEMODYNAMI ---
PATIENT:LAURA LEON MEDICAL RECORD: [id number] : 48 LOCATION:[facility] ADMISSION DATE: 08/25/18 Generatedon:08/25/201810:21 Patient name: LAURA LEON Patient #: [id number] SSN: : 1950 Date of study: 08/25/2018 Page: Of Hemodynamic Procedure Report Patient Data Patient Demographics Procedure consent was obtained First Name: LAURA Gender: Male Last Name: CAROLYN : 1950 Middle Initial: F Age: 68 year(s) Patient #: [id number] Race: Unknown Additional ID: [id number] Contact details Address: [address] [place] [address] State: [place] City: [place] Zip code: [address] Past Medical History Allergies: No known allergies Admission Admission Data Admission Date: 08/25/2018 Admission Time: 6:09 Height (in.): 68 BSA: 2.08 (m2) Height (cm.): 172.72 BMI: 31.63 (kg/m2) Weight (lbs.): 208 Weight (kg.): 94.35 Procedure Procedure Types Cath Procedure Peripheral Cath Diagnostic Procedure Venography Extremity Procedure Description Procedure Date Procedure Date: 08/25/2018 Procedure Start Time: 8:50 Procedure Staff Name Function Taylor Rojas RT Monitor Fermin Winn RT Scrub Edin Almaraz MD Performing Physician Ritu Hook RN Nurse Sandra Shearer RN Nurse Procedure Data Cath Procedure Fluoroscopy Diagnostic fluoroscopy Total fluoroscopy Time: time: 10.6 min 10.6 min Diagnostic fluoroscopy Total fluoroscopy dose: 130 dose: 130 mGy mGy Contrast Material Contrast Material Type Amount (ml) Isovue 300 65 Entry Location Entry Primary Successful Side Size Upsize Upsize Entry Closure Succes sful Closure Location (Fr) 1 (Fr) 2 (Fr) Remarks Device Remarks Femoral Mynx artery Tester Rocket Engine 6Fr/7Fr Diagnostic catheters Device Type Used For End Catheter Placement DIAGNOSTIC IMT 5Fr Catheter ([id number]) Procedure Medications Medication Administration Route Dosage Oxygen etCO2 Nasal cannula 4 l/min Versed I.V. 2 mg Fentanyl I.V. 50 mcg Heparin Flush Bag added to field 3 bags (1000units/500ml NS) Lidocaine 1% with added to field 20 ml Epi Fentanyl I.V. 50 mcg Heparin Bolus I.V. 5000 units Versed I.V. 2 mg Fentanyl I.V. 50 mcg Fentanyl I.V. 50 mcg Versed I.V. 2 mg Fentanyl I.V. 50 mcg Fentanyl I.V. 50 mcg Hemodynamics Rest BSA: 2.08 (m2) O2 Consumption: Estimated: 257.48 (ml/min) O2 Consumption indexed : Estimated:123.79 (ml/min/m) Heart Rate: 91 (bpm) Snapshots Pre Cath Intra NCS Post Cath Vital Signs Time Heart Resp SPO2 etCO2 NIBP (mmHg) Rhythm Pain Sedation Rate (ipm) (%) (mmHg) Status Level (bpm) 8:36:07 76 18 96 34.1 166/95(134) NSR 0 (11) 10(A) , No pain 8:40:41 73 17 96 34.1 162/84(128) NSR 0 (11) 9(A) , No pain 8:45:13 74 16 94 34.9 159/83(121) NSR 0 (11) 9(A) , No pain 8:49:46 70 17 97 34.2 170/77(125) NSR 0 (11) 9(A) , No pain 8:54:16 72 18 96 37.2 154/78(115) NSR 0 (11) 8(A) , No pain 8:58:45 73 10 98 34.9 148/74(106) NSR 0 (11) 8(A) , No pain 9:03:19 73 16 98 34.9 152/74(114) NSR 0 (11) 8(A) , No pain 9:07:49 72 12 99 36.4 163/74(110) NSR 0 (11) 8(A) , No pain 9:12:08 77 9 95 34.9 133/77(105) NSR 0 (11) 8(A) , No pain 9:16:32 78 10 97 38.7 146/69(114) NSR 0 (11) 8(A) , No pain 9:20:52 76 8 96 35.7 141/72(108) NSR 0 (11) 8(A) , No pain 9:25:16 75 7 96 38.7 143/69(102) NSR 0 (11) 8(A) , No pain 9:29:44 75 11 97 35.6 150/71(111) NSR 0 (11) 8(A) , No pain 9:34:17 74 6 98 22.8 135/70(105) NSR 0 (11) 8(A) , No pain 9:39:16 77 6 96 37.2 Measuring NSR 0 (11) 8(A) , No pain 9:39:40 72 3 96 38 152/72(115) NSR 0 (11) 8(A) , No pain 9:44:11 74 7 98 37.2 137/74(106) NSR 0 (11) 8(A) , No pain 9:48:35 74 1 98 36.4 149/75(104) NSR 0 (11) 8(A) , No pain 9:53:05 73 9 97 38 157/73(116) NSR 0 (11) 8(A) , No pain 9:57:38 73 9 96 35.7 153/76(114) NSR 0 (11) 8(A) , No pain 10:02:08 73 10 99 42.5 151/72(110) NSR 0 (11) 8(A) , No pain 10:06:30 78 6 81 0 134/78(94) NSR 0 (11) 8(A) , No pain 10:11:29 73 7 96 41.8 Measuring NSR 0 (11) 8(A) , No pain 10:11:50 73 6 95 0 150/76(116) NSR 0 (11) 8(A) , No pain Medications Time Medication Route Dose Verified Delivered Reason Note s Effectiveness by by 8:38:12 Oxygen etCO2 4l/min Edin Flores for sedation Nasal Rufina Shearer RN cannula 8:52:26 Versed I.V. 2 mg Edin Flores for sedation Mostly Rufina Shearer RN sleeping @ 8:59:22 8:52:43 Fentanyl I.V. 50 mcg Edin Flores for sedation Mostly Rufina Shearer RN sleeping @ 8:59:19 8:53:05 Heparin Flush added 3 bags Edin Jesus used for Bag to Rufina Almaraz procedure (1000units/500ml field MD BAER NS) 8:53:23 Lidocaine 1% added 20 ml Edin Jesus used for with Epi to Rufina Rufina procedure field MD BAER 9:00:05 Fentanyl I.V. 50 mcg Edin Julesine for sedation Mostly Rufina Shearer RN sleeping @ 9:13:08 9:08:09 Heparin Bolus I.V. 5000 Edin Julesine for units Rufina Shearer RN anticoagulation MD 9:08:19 Versed I.V. 2 mg Edin Julesine for sedation Mostly Rufina Shearer RN sleeping @ 9:13:03 9:08:26 Fentanyl I.V. 50 mcg Edin Julesine for sedation Mostly Rufina Shearer RN sleeping @ 9:12:59 9:28:57 Fentanyl I.V. 50 mcg Edin Julesine for sedation Mostly Rufina Shearer RN sleeping @ 9:42:44 9:31:48 Versed I.V. 2 mg Edin Julesine for sedation Mostly Rufina Shearer RN sleeping @ 9:42:41 9:54:54 Fentanyl I.V. 50 mcg Edin Julesine for sedation Fully awake @ Rufina Shearer RN 10:01:37 10:01:32 Fentanyl I.V. 50 mcg Edin Sandra for sedation Rufina Shearer RN, MD Procedure Log Time Note 8:27:05 Time tracking: Regular hours (M-F 7:00 - 5:00) 8:28:28 Plan of Care:Hemodynamics will remain stable., Cardiac rhythm will remain stable., Comfort level will be maintained., Respiratory function will remain adequate., Patient/ family verbilizes understanding of procedure., Procedure tolerated without complication., Recovers from procedure without complications.. 8:28:48 Patient received from Outpatients to IR Alert and oriented. Tansferred to table in Supine position. 8:28:51 Correct patient and procedure confirmed by team. 8:28:53 Signed procedure consent form obtained from patient. 8:29:03 H&P Date Dictated: 08/25/2018 Within 30 days and on chart.. 8:29:04 - 8:29:41 Pre-procedure instructions explained to patient. 8:29:42 Pre-op teaching completed and patient verbalized understanding. 8:29:45 Family unavailable. 8:29:47 Patient NPO since Midnight. 8:30:00 Patient allergic to No known allergies 8:30:07 Is the patient allergic to Iodine/contrast media? No. 8:30:26 Is patient on blood thinner?Yes 8:30:31 ACC The patient was administered the following blood thiners within the last 24 hours: ACCAspirin 8:30:36 Patient diabetic? Yes. 8:30:38 If diabetic: On Metformin? Yes 8:30:45 If on Metformin: Last Dose? 08/24/2018 8:30:49 - 8:30:54 ----Pre-sedation anethsthesia assessment.---- 8:31:01 Previous problem with sedation/anesthesia? No ? 8:31:04 Snore? Yes 8:31:06 Sleep apnea? No 8:31:12 Deviated septum? No 8:31:14 Opens mouth fully? Yes 8:31:16 Sticks out tongue? Yes 8:31:37 Airway obstruction? No but has had a cabg 8:31:57 Dentures? No ? 8:31:59 - 8:32:05 Pre procedure: right dorsailis pedis pulse Doppler 8:32:09 Pre procedure: left dorsailis pedis pulse Doppler 8:32:14 Pre procedure: right posterior tibial pulse Doppler 8:32:18 Pre procedure: left posterior tibial pulse Doppler 8:32:29 IV patent on arrival in left forearm with D5/.45%NaCl at KVO. 8:32:43 Left groin area was prepped with chlora-prep and draped in sterile fashion 8:32:46 - 8:34:38 ECG and BP/O2 sat monitors applied to patient. 8:34:40 Vital chart was started 8:34:42 Baseline sample Acquired. 8:34:56 Baseline sample Acquired. 8:34:59 Full Disclosure recording started 8:35:00 - 8:38:12 Oxygen 4l/min etCO2 Nasal cannula was administered by Sandra Shearer RN; for sedation; 8:38:45 - 8:40:07 SHEATH 6FR Destination (RSR01) opened to sterile field. 8:40:08 BENTSON 145cm wire ([id number]) opened to sterile field. 8:40:08 TUBING Contrast Injection High Pressure ([id number]) opened to sterile field. 8:40:09 Micropuncture VSI 4FR kit opened to sterile field. 8:40:10 GUTIERREZ 260 wire (K63539) opened to sterile field. 8:40:11 SHEATH 5FR [place] (QMU629) opened to sterile field. 8:40:17 Use device set IR Diagnostic 8:40:18 Tegaderm 4 x 4 (1626W) opened to sterile field. 8:40:19 Sterile Angiographic Pack opened to sterile field. 8:40:20 Bag Decanter (2002S) opened to sterile field. 8:40:21 ACIST Manifold (37432) opened to sterile field. 8:40:22 ACIST Hand Control (05879) opened to sterile field. 8:40:23 ACIST Syringe (80510) opened to sterile field. 8:40:30 - 8:42:58 A DIAGNOSTIC IMT 5Fr Catheter ([id number]) was advanced over the wire an d used for . 8:48:18 Physician arrived 8:49:01 --------ALL STOP TIME OUT------ 8:49:02 Final Timeout: patient, procedure, and site verified with staff and physician. All members of the team are in agreement. 8:50:09 Procedure started. 8:50:16 Local anesthetic to left femerol artery with Lidocaine 1% by Edin Almaraz MD.INITIAL ACCESS ONLY 8:50:19 Arterial access obtained using ultrasound guidance. 8:52:26 Versed 2 mg I.V. was administered by Sandra Shearer RN; for sedation; 8::43 Fentanyl 50 mcg I.V. was administered by Sandra Shearer RN; for sedation; 8:53:05 Heparin Flush Bag (1000units/500ml NS) 3 bags added to field was administered by Edin Almaraz MD; used for procedure; 8:53:23 Lidocaine 1% with Epi 20 ml added to field was administered by Edin Almaraz MD; used for procedure; 8:59:19 Effectiveness of Fentanyl delivered @ 8:52:43 is: Mostly sleeping 8:59:22 Effectiveness of Versed delivered @ 8:52:26 is: Mostly sleeping 9:00:05 Fentanyl 50 mcg I.V. was administered by Sandra Shearer RN; for sedation; 9:01:12 ROADRUNNER .035 260 glide wire ([id number]) opened to sterile field. 9:05:59 CHOICE PT Floppy Straight 300cm guide wire ([id number]) opened to sterile field. 9:06:13 CXI SUPPORT .035 135 CM STR catheter (K14278) opened to sterile field. 9:06:40 Patient Weight : 208 lbs 9:06:44 Patient Height : 68 inches 9:08:09 Heparin Bolus 5000 units I.V. was administered by Sandra Shearer RN; for anticoagulation; ::19 Versed 2 mg I.V. was administered by Sandra Shearer RN; for sedation; 9::26 Fentanyl 50 mcg I.V. was administered by Sandra Shearer RN; for sedation; 9::39 INFLATOR BasixTOUCH (SS6153) opened to sterile field. 9::59 Effectiveness of Fentanyl delivered @ 9:08:26 is: Mostly sleeping 9:13:03 Effectiveness of Versed delivered @ ::19 is: Mostly sleeping 9:13:08 Effectiveness of Fentanyl delivered @ 9:00:05 is: Mostly sleeping 9:17:49 Inflate balloon Inflation number: 1 A CHOCOLATE 2.5 x 120 x 150 balloon ([id number]) was prepped and advanced across the Undefined1, then inflated. 9:18:57 COPILOT Valve Control (2629030) opened to sterile field. 9:28:57 Fentanyl 50 mcg I.V. was administered by Sandra Shearer RN; for sedation; 9:31:06 Inflate balloon Inflation number: 2 A CHOCOLATE 4.0 x 40 x 135 balloon ([id number]) was prepped and advanced across the Undefined1, then inflated. 9:31:48 Versed 2 mg I.V. was administered by Sandra Shearer RN; for sedation; 9:42:05 Inflate balloon Inflation number: 1 A Holiday Plus 2 x 2 x 130 Balloon ([id number]) was prepped and advanced across the Undefined2, then inflated. 9:42:41 Effectiveness of Versed delivered @ 9:31:48 is: Mostly sleeping 9:42:44 Effectiveness of Fentanyl delivered @ 9:28:57 is: Mostly sleeping 9:54:54 Fentanyl 50 mcg I.V. was administered by Sandra Shearer RN; for sedation; 10:01:32 MYNX STEEL PLATE PRINTER 6FR/7FR (VK5291) opened to sterile field. 10:01:32 Fentanyl 50 mcg I.V. was administered by Sandra Shearer RN; for sedation; 10:01:37 Effectiveness of Fentanyl delivered @ 9:54:54 is: Fully awake 10:01:41 SHEATH 6FR [place] (MOJ365) opened to sterile field. 10:02:15 Sheath removed intact; hemostasis achieved with Mynx Tester Rocket Engine 6Fr/7Fr to th e Femoral artery. 10:02:15 A sheath was inserted into the Femoral artery 10:04:38 Procedure ended.(Physican Out) 10:04:52 Fluoroscopy time 10.60 minutes. 10::58 Fluoroscopy dose: 130 mGy 10::58 Flurop Dose total: 130 10:05:03 Contrast amount:Isovue 300 65ml. 10:06:26 Procedure and supply charges have been captured, reviewed, submitted an d are correct. 10:12:43 Post Procedure Pulses reassessed and unchanged 10:12:48 Report given to Outpatients. 10:13:18 Vital chart was stopped 10:13:23 Full Disclosure recording stopped Intervention Summary Intervention Notes Time ActionType Lesion and Equipment Used Action# Pressure Duration Attributes 9:17:49 Inflate Undefined1 CHOCOLATE 2.5 x 1 0 00:00 balloon 120 x 150 balloon ([id number]) 9:31:06 Inflate Undefined1 CHOCOLATE 4.0 x 2 0 00:00 balloon 40 x 135 balloon ([id number]) 9:42:05 Inflate Undefined2 Holiday Plus 2 x 1 0 00:00 balloon 2 x 130 Balloon ([id number]) Device Usage Item Name Manufacture Quantity Catalog Number Hospital Part Current Minimal Lot# / Charge Number Stock Stock Serial# Code SHEATH 6FR Terumo 1 [id number] 39573 [id number] 5 Destination (RSR01) TUBING Contrast Merit 1 [id number] 141213 059396 709412 5 Injection High Medical Pressure ([id number]) BENTSON 145cm Beneq 1 W81517 659998 985612 5 wire (B87481) Micropuncture VSI VSI VASCULAR 1 7266V 594328 802975 5 4FR kit SOLUTIONS GUTIERREZ 260 wire [facility] Medical 1 [id number] 277041 93461 065662 5 [id number] ([id number]) SHEATH 5FR Terumo 1 ZVR827 935650 469034 694020 5 [place] (TIU114) Tegaderm 4 x 4 3M 1 1626W 745333 762257 781149 5 (1626W) Sterile Cardinal 1 [id number] 501728 694265 5 Angiographic Pack Health Bag Decanter Microtek 1 2001S 719367 38350 516811 5 (2001S) Medical Inc. ACIST Manifold Acist 1 83726 298431 570781 936377 5 (80111) Medical Systems Inc ACIST Hand Acist 1 90637 594909 182525 436495 5 Control (39687) Medical Systems Inc ACIST Syringe Acist 1 85224 112738 726466 318399 20 (80134) Medical Systems Inc DIAGNOSTIC IMT [place] 1 [id number] 916120 953392 08696 5 5Fr Catheter Scientific ([id number]) ROADRUNNER .035 Cook Medical 1 N23139 053757 976491 183820 5 1155351 260 glide wire (L41117) CHOICE PT Floppy [place] 1 [id number] 804501 331426 488457 5 Straight 300cm Scientific guide wire ([id number]) CXI SUPPORT .035 [employer] 1 Z08726 682474 227178 691930 5 2853176 135 CM STR catheter (J98630) INFLATOR Merit 1 QJ9576 206510 353020 535001 5 BasixCequel Data Medical (IZ1370) CHOCOLATE 2.5 x Medtronic 1 [id number] 977498 597151 601802 5 [id number] 120 x 150 balloon O [id number] ([id number]) TW [id number] COPILOT Valve [place] 1 6779060 595658 213098 722152 5 Control (8624938) Vascular CHOCOLATE 4.0 x Medtronic 1 [id number] 933718 00641 643485 5 [id number] 40 x 135 balloon O [id number] ([id number]) TW [id number] Holiday Plus 2 x Medtronic 1 [id number] 262010 985732 329205 5 [id number] 2 x 130 Balloon ([id number]) MYNX STEEL PLATE PRINTER 6FR/7FR Access 1 JE5609 389314 325749 5 (NV4680) Closure SHEATH 6FR Terumo 1 KSB742 991863 875433 221625 40 [place] (ZCH715) Signature Audit [place] Stage Time Signature Unsigned Intra-Procedure 08/25/2018 Taylor Winn RT 10:13:13 AM RT(R) (R) (CV) 08/25/2018 10:20:19 AM Intra-Procedure 08/25/2018 Taylor Rojas 10:21:04 AM RT(R) Signatures Monitor : Taylor Rojas RT Signature : Date : Time : [id number] [place] [address]
[2018-08-25] MEDS ORDERED: TOZAL SOFTGEL1 EACH PO (06:43)
[2018-08-25 06:52] LABS: BASOPHILS 0.4 % (0-2); EOSINOPHILS 3.3 % (0-7); HEMATOCRIT 34.6 % (42.0-54.0); HEMOGLOBIN 11.2 g/dL (13.5-17.5); IMMATURE GRANULOCYTES 0.2 % (0-5); LYMPHOCYTES 34.2 % (15-50); MCH 30.1 pg (26.0-34.0); MCHC 32.4 g/dL (31.0-37.0); MEAN PLATELET VOLUME 10.8 fL (7.4-10.4); MONOCYTES 8.1 % (2-11); NEUTROPHILS 53.8 % (40-80); PLATELET COUNT 320 10x3/uL (130-400); RBC 3.72 10x6/uL (4.20-6.10); RDW 13.3 % (11.5-14.5)
[2018-08-25 06:53] VITALS: BP 132/72; Ht 172.7 cm; Wt 94.5 kg
[2018-08-25 07:08] LABS: ANION GAP 15.4 mmol/L (8-16); CALCIUM 8.5 mg/dL (8.5-10.1); CARBON DIOXIDE 25.8 mmol/L (21.0-32.0); CREATININE - SERUM 1.2 mg/dL (0.6-1.3); POTASSIUM - SERUM 4.2 mmol/L (3.5-5.1)
[2018-08-25 07:09] LABS: APTT 32.5 SECONDS (22.8-39.4); INR 1.01 (0.85-1.17); PROTIME 12.8 SECONDS (11.6-15.0)
== END 2018-08-25 14:15 | disposition home or self-care (01) ==
LOC: D.SP 06:09 → D.RAD 08:00 → D.SP 14:15
PROVIDERS: Radiology Diagnostic Radiology
DX: I70.235 Atherosclerosis of native arteries of right leg with ulceration of other part of foot (principal); L97.519 Non-pressure chronic ulcer of other part of right foot with unspecified severity; I70.92 Chronic total occlusion of artery of the extremities; E11.9 Type 2 diabetes mellitus without complications; Z79.4 Long term (current) use of insulin; Z01.812 Encounter for preprocedural laboratory examination

== ENCOUNTER 2018-09-11 07:40 | Day surgery (SDC) | payer MEDICARE ==
[2018-09-10 16:19] LABS: HEMATOCRIT 35.3 % (42.0-54.0); HEMOGLOBIN 11.6 g/dL (13.5-17.5); MCH 30.6 pg (26.0-34.0); MCHC 32.9 g/dL (31.0-37.0); MCV 93.1 fL (80.0-100.0); MEAN PLATELET VOLUME 11.3 fL (7.4-10.4); RBC 3.79 10x6/uL (4.20-6.10); RDW 13.6 % (11.5-14.5); WBC 9.4 10x3/uL (4.8-10.8)
[2018-09-10 16:45] LABS: ANION GAP 18.9 mmol/L (8-16); CALCIUM 8.7 mg/dL (8.5-10.1); CREATININE - SERUM 1.3 mg/dL (0.6-1.3); POTASSIUM - SERUM 4.9 mmol/L (3.5-5.1)
[~2018-09-11] VITALS: Ht 172.7 cm; Wt 94.3 kg
[~2018-09-11 07:40] MED LIST changes: +CIPRO500 MG PO; +TOZAL SOFTGEL1 EACH PO
[2018-09-11] MEDS ORDERED: PLAVIX75 MG PO (08:21)
[2018-09-11 08:27] VITALS: BP 144/82; Ht 172.7 cm; Wt 94.3 kg
--- NOTE | 2018-09-11 14:10 | NUR ---
PT'S BS IN RECOVERY 92 PER NURSES REPORT
--- NOTE | 2018-09-11 14:33 | NUR ---
DISCHARGED PT AT 1425 WITH SONAL. DISCHARGE INSTRUCTIONS GIVEN, ALL QUESTIONS ASNWERED, PT STABLE
[2018-09-20 18:07] LABS: AEROBE ID Final report (()); RESULT 1 Enterococcus avium (())
== END 2018-09-11 14:25 | disposition home or self-care (01) ==
LOC: D.OPS 07:40 → D.PAN 09:30 → D.OPS 09:30
PROVIDERS: Anesthesiology; Podiatrist Foot & Ankle Surgery
DX: E11.69 Type 2 diabetes mellitus with other specified complication (principal); M86.9 Osteomyelitis, unspecified; E11.40 Type 2 diabetes mellitus with diabetic neuropathy, unspecified; Z72.0 Tobacco use

== ENCOUNTER 2018-09-22 12:14 | Outpatient (CLI) | payer MEDICARE ==
[~2018-09-22] VITALS: Ht 172.7 cm; Wt 95.9 kg
[~2018-09-22 12:14] MED LIST changes: +PLAVIX75 MG PO
[2018-09-22 13:09] VITALS: BP 121/67; Ht 172.7 cm; Wt 95.9 kg
[2018-09-22 14:27] LABS: BASOPHILS 0.3 % (0-2); HEMATOCRIT 32.5 % (42.0-54.0); HEMOGLOBIN 10.5 g/dL (13.5-17.5); IMMATURE GRANULOCYTES 0.2 % (0-5); LYMPHOCYTES 31.8 % (15-50); MCH 29.9 pg (26.0-34.0); MCHC 32.3 g/dL (31.0-37.0); MCV 92.6 fL (80.0-100.0); MEAN PLATELET VOLUME 10.9 fL (7.4-10.4); MONOCYTES 8.5 % (2-11); NEUTROPHILS 56.2 % (40-80); PLATELET COUNT 310 10x3/uL (130-400); RBC 3.51 10x6/uL (4.20-6.10); RDW 13.5 % (11.5-14.5); WBC 9.2 10x3/uL (4.8-10.8)
[2018-09-22 14:39] LABS: C-REACTIVE PROTEIN 2.7 mg/dL (0.0-0.9)
[2018-09-22 15:47] LABS: ERYTHROCYTE SEDIMENTATION RATE 108 mm/hr (0-20)
== END 2018-09-22 16:17 | disposition home or self-care (01) ==
LOC: D.OPS 12:14
PROVIDERS: Student in an Organized Health Care Education/Training Program
DX: M86.9 Osteomyelitis, unspecified (principal)

== ENCOUNTER → 2018-09-30 12:20 | Outpatient (CLI) | payer MEDICARE ==
[2018-09-22 13:09] VITALS: BMI 32.1
[2018-09-30 17:49] LABS: CALCIUM 9.3 mg/dL (8.5-10.1); CARBON DIOXIDE 26.7 mmol/L (21.0-32.0); CREATININE - SERUM 1.1 mg/dL (0.6-1.3); POTASSIUM - SERUM 5.7 mmol/L (3.5-5.1)
[2018-09-30 17:52] LABS: BASOPHILS 0.2 % (0-2); EOSINOPHILS 4.5 % (0-7); HEMATOCRIT 33.2 % (42.0-54.0); HEMOGLOBIN 10.6 g/dL (13.5-17.5); IMMATURE GRANULOCYTES 0.2 % (0-5); LYMPHOCYTES 30.8 % (15-50); MCH 29.9 pg (26.0-34.0); MCHC 31.9 g/dL (31.0-37.0); MCV 93.5 fL (80.0-100.0); MEAN PLATELET VOLUME 11.6 fL (7.4-10.4); MONOCYTES 6.7 % (2-11); NEUTROPHILS 57.6 % (40-80); RBC 3.55 10x6/uL (4.20-6.10); RDW 13.8 % (11.5-14.5); WBC 9.1 10x3/uL (4.8-10.8)
[2018-09-30 17:56] LABS: PLATELET COUNT 379 10x3/uL (130-400)
[2018-09-30 18:51] LABS: ERYTHROCYTE SEDIMENTATION RATE 85 mm/hr (0-20)
== END | disposition home or self-care (01) ==
LOC: D.LABREF 12:20
PROVIDERS: Student in an Organized Health Care Education/Training Program
DX: M86.9 Osteomyelitis, unspecified (principal)

== ENCOUNTER → 2018-09-30 17:32 | Outpatient (CLI) | payer MEDICARE ==
[2018-09-22 13:09] VITALS: BMI 32.1
== END | disposition home or self-care (01) ==
LOC: D.LABREF 17:32
DX: M86.9 Osteomyelitis, unspecified (principal)

== ENCOUNTER → 2018-10-07 13:26 | Outpatient (CLI) | payer MEDICARE ==
[2018-09-22 13:09] VITALS: BMI 32.1
[2018-10-07 13:48] LABS: BASOPHILS 0.7 % (0-2); EOSINOPHILS 19.3 % (0-7); HEMATOCRIT 33.6 % (42.0-54.0); IMMATURE GRANULOCYTES 0.3 % (0-5); MCH 30.1 pg (26.0-34.0); MCHC 32.7 g/dL (31.0-37.0); MCV 91.8 fL (80.0-100.0); MONOCYTES 5.2 % (2-11); NEUTROPHILS 43.5 % (40-80); RBC 3.66 10x6/uL (4.20-6.10); RDW 14.1 % (11.5-14.5); WBC 10.4 10x3/uL (4.8-10.8)
[2018-10-07 13:54] LABS: MEAN PLATELET VOLUME 11 fL (7.4-10.4); PLATELET COUNT 278 10x3/uL (130-400)
[2018-10-07 14:01] LABS: C-REACTIVE PROTEIN < 0.2 mg/dL (0.0-0.9); CREATININE - SERUM 0.9 mg/dL (0.6-1.3); UREA NITROGEN 19 mg/dL (7-18)
[2018-10-07 15:15] LABS: ERYTHROCYTE SEDIMENTATION RATE 72 mm/hr (0-20)
== END | disposition home or self-care (01) ==
LOC: D.LABREF 13:26
PROVIDERS: Student in an Organized Health Care Education/Training Program
DX: Z51.81 Encounter for therapeutic drug level monitoring (principal); Z79.2 Long term (current) use of antibiotics; T14.8XXA Other injury of unspecified body region, initial encounter; L08.9 Local infection of the skin and subcutaneous tissue, unspecified; X58.XXXA Exposure to other specified factors, initial encounter

== ENCOUNTER → 2018-10-14 18:16 | Outpatient (CLI) | payer MEDICARE ==
[2018-09-22 13:09] VITALS: BMI 32.1
[2018-10-14 18:53] LABS: HEMATOCRIT 37.2 % (42.0-54.0); HEMOGLOBIN 11.8 g/dL (13.5-17.5); MCHC 31.7 g/dL (31.0-37.0); MCV 94.7 fL (80.0-100.0); MEAN PLATELET VOLUME 12.2 fL (7.4-10.4); PLATELET COUNT 254 10x3/uL (130-400); RBC 3.93 10x6/uL (4.20-6.10); RDW 14.9 % (11.5-14.5); WBC 8.4 10x3/uL (4.8-10.8)
[2018-10-14 19:06] LABS: CREATININE - SERUM 1.1 mg/dL (0.6-1.3)
[2018-10-14 19:43] LABS: EOSINOPHILS 12 % (0-7); LYMPHOCYTES 46 % (15-50); MONOCYTES 2 % (2-11); NEUTROPHILS 40 % (40-80); PLATELET ESTIMATE NORMAL
[2018-10-14 20:03] LABS: ERYTHROCYTE SEDIMENTATION RATE 40 mm/hr (0-20)
== END | disposition home or self-care (01) ==
LOC: D.LABREF 18:16
PROVIDERS: Student in an Organized Health Care Education/Training Program
DX: M86.9 Osteomyelitis, unspecified (principal)

== ENCOUNTER → 2018-10-21 13:11 | Outpatient (CLI) | payer MEDICARE ==
[2018-09-22 13:09] VITALS: BMI 32.1
[2018-10-21 14:39] LABS: BASOPHILS 0.8 % (0-2); HEMATOCRIT 31.1 % (42.0-54.0); IMMATURE GRANULOCYTES 0.1 % (0-5); LYMPHOCYTES 35.5 % (15-50); MCH 29.7 pg (26.0-34.0); MCHC 32.2 g/dL (31.0-37.0); MCV 92.3 fL (80.0-100.0); MONOCYTES 6.3 % (2-11); NEUTROPHILS 36.3 % (40-80); PLATELET COUNT 211 10x3/uL (130-400); RBC 3.37 10x6/uL (4.20-6.10); RDW 14.8 % (11.5-14.5); WBC 7.2 10x3/uL (4.8-10.8)
[2018-10-21 14:53] LABS: CREATININE - SERUM 1.1 mg/dL (0.6-1.3)
[2018-10-21 15:56] LABS: ERYTHROCYTE SEDIMENTATION RATE 35 mm/hr (0-20)
== END | disposition home or self-care (01) ==
LOC: D.LABREF 13:11
PROVIDERS: Student in an Organized Health Care Education/Training Program
DX: L08.9 Local infection of the skin and subcutaneous tissue, unspecified (principal)

== ENCOUNTER → 2018-10-28 15:46 | Outpatient (CLI) | payer MEDICARE ==
[2018-09-22 13:09] VITALS: BMI 32.1
[2018-10-28 18:06] LABS: BASOPHILS 1.4 % (0-2); EOSINOPHILS 17.1 % (0-7); HEMATOCRIT 34.2 % (42.0-54.0); HEMOGLOBIN 11.1 g/dL (13.5-17.5); LYMPHOCYTES 37.2 % (15-50); MCH 30.2 pg (26.0-34.0); MCHC 32.5 g/dL (31.0-37.0); MCV 92.9 fL (80.0-100.0); MONOCYTES 7.8 % (2-11); NEUTROPHILS 36.5 % (40-80); RBC 3.68 10x6/uL (4.20-6.10); RDW 14.9 % (11.5-14.5); WBC 7.2 10x3/uL (4.8-10.8)
[2018-10-28 18:13] LABS: PLATELET COUNT 260 10x3/uL (130-400)
[2018-10-28 18:16] LABS: ANION GAP 19.2 mmol/L (8-16); CALCIUM 8.7 mg/dL (8.5-10.1); CARBON DIOXIDE 21.2 mmol/L (21.0-32.0); CREATININE - SERUM 1.1 mg/dL (0.6-1.3); POTASSIUM - SERUM 5.4 mmol/L (3.5-5.1)
== END | disposition home or self-care (01) ==
LOC: D.LABREF 15:46
PROVIDERS: Student in an Organized Health Care Education/Training Program
DX: L08.9 Local infection of the skin and subcutaneous tissue, unspecified (principal)

== ENCOUNTER → 2018-11-04 12:19 | Outpatient (CLI) | payer MEDICARE ==
[2018-09-22 13:09] VITALS: BMI 32.1
[2018-11-04 13:43] LABS: BASOPHILS 0.8 % (0-2); EOSINOPHILS 12.7 % (0-7); HEMATOCRIT 36.9 % (42.0-54.0); IMMATURE GRANULOCYTES 0.1 % (0-5); LYMPHOCYTES 42.5 % (15-50); MCH 30.2 pg (26.0-34.0); MCHC 32.5 g/dL (31.0-37.0); MCV 92.9 fL (80.0-100.0); MEAN PLATELET VOLUME 11.7 fL (7.4-10.4); MONOCYTES 7.6 % (2-11); NEUTROPHILS 36.3 % (40-80); PLATELET COUNT 259 10x3/uL (130-400); RBC 3.97 10x6/uL (4.20-6.10); RDW 14.7 % (11.5-14.5); WBC 7.1 10x3/uL (4.8-10.8)
[2018-11-04 13:53] LABS: CREATININE - SERUM 1.1 mg/dL (0.6-1.3); UREA NITROGEN 17 mg/dL (7-18)
[2018-11-04 13:55] LABS: C-REACTIVE PROTEIN < 0.2 mg/dL (0.0-0.9)
[2018-11-04 14:51] LABS: ERYTHROCYTE SEDIMENTATION RATE 23 mm/hr (0-20)
== END | disposition home or self-care (01) ==
LOC: D.LABREF 12:19
PROVIDERS: Student in an Organized Health Care Education/Training Program
DX: Z51.81 Encounter for therapeutic drug level monitoring (principal); Z79.899 Other long term (current) drug therapy; M86.9 Osteomyelitis, unspecified

== ENCOUNTER → 2018-11-11 10:32 | Outpatient (CLI) | payer MEDICARE ==
[2018-09-22 13:09] VITALS: BMI 32.1
[2018-11-11 12:24] LABS: UREA NITROGEN 18 mg/dL (7-18)
[2018-11-11 12:30] LABS: C-REACTIVE PROTEIN < 0.2 mg/dL (0.0-0.9)
[2018-11-11 12:36] LABS: BASOPHILS 0.8 % (0-2); EOSINOPHILS 6.7 % (0-7); HEMATOCRIT 35.8 % (42.0-54.0); HEMOGLOBIN 11.6 g/dL (13.5-17.5); IMMATURE GRANULOCYTES 0.3 % (0-5); LYMPHOCYTES 43.6 % (15-50); MCH 29.9 pg (26.0-34.0); MCHC 32.4 g/dL (31.0-37.0); MCV 92.3 fL (80.0-100.0); MEAN PLATELET VOLUME 11.6 fL (7.4-10.4); MONOCYTES 9.1 % (2-11); NEUTROPHILS 39.5 % (40-80); PLATELET COUNT 243 10x3/uL (130-400); RBC 3.88 10x6/uL (4.20-6.10); RDW 14.4 % (11.5-14.5); WBC 7.1 10x3/uL (4.8-10.8)
[2018-11-11 13:48] LABS: ERYTHROCYTE SEDIMENTATION RATE 19 mm/hr (0-20)
== END | disposition home or self-care (01) ==
LOC: D.LABREF 10:32
PROVIDERS: ATTEND Student in an Organized Health Care Education/Training Program
DX: M86.9 Osteomyelitis, unspecified (principal)

== ENCOUNTER → 2018-11-26 20:21 | Outpatient (CLI) | payer MEDICARE ==
[2018-09-22 13:09] VITALS: BMI 32.1
[2018-11-26 22:37] LABS: ERYTHROCYTE SEDIMENTATION RATE 17 mm/hr (0-20)
== END | disposition home or self-care (01) ==
LOC: D.LABREF 20:21
PROVIDERS: ATTEND Student in an Organized Health Care Education/Training Program
DX: M86.9 Osteomyelitis, unspecified (principal)

== ENCOUNTER → 2019-02-18 12:40 | Outpatient (CLI) | payer MEDICARE ==
[2018-09-22 13:09] VITALS: BMI 32.1
== END | disposition home or self-care (01) ==
LOC: D.HCCARDIO 12:40
PROVIDERS: ATTEND Internal Medicine Cardiovascular Disease
DX: I25.10 Atherosclerotic heart disease of native coronary artery without angina pectoris (principal)

== ENCOUNTER → 2019-03-31 09:44 | Outpatient (CLI) | payer MEDICARE ==
[2018-09-22 13:09] VITALS: BMI 32.1
== END | disposition home or self-care (01) ==
LOC: D.HCCARDIO 09:44
PROVIDERS: ATTEND Internal Medicine Cardiovascular Disease
DX: I25.810 Atherosclerosis of coronary artery bypass graft(s) without angina pectoris (principal)

== ENCOUNTER 2019-04-14 10:35 | Outpatient (CLI) | payer MEDICARE ==
[~2019-04-14] VITALS: Ht 172.7 cm; Wt 98.2 kg
--- NOTE | ~2019-04-14 | HEMODYNAMI ---
PATIENT:LAURA LEON MEDICAL RECORD: [id number] : 48 LOCATION:[facility] ADMISSION DATE: 04/14/19 Generatedon:04/14/201913:56 Patient name: LAURA LEON Patient #: [id number] SSN: [id number] : 1950 Date of study: 04/14/2019 Page: Of Hemodynamic Procedure Report Patient Data Patient Demographics Procedure consent was obtained First Name: LAURA Gender: Male Last Name: CAROLYN : 1950 Middle Initial: F Age: 69 year(s) Patient #: [id number] Race: SSN: [id number] Additional ID: [id number] Contact details [address]: [address] [place] [address] State: [place] City: [place] Zip code: [address] Past Medical History Performed procedures and imaging results Date Procedure Procedure Results Comments Stress testing with Positive->High SPECT MPI risk History of disease Date Diagnosis Comments CAD Allergies: No known allergies Admission Admission Data Admission Date: 04/14/2019 Admission Time: 10:35 Arrival Date: 04/14/2019 Arrival Time: 0:00 Admit Source: Other Insurance Payor: Private health insurance [facility] #: [id number] Height (in.): 68 BSA: 2.11 (m2) Height (cm.): 172.72 BMI: 32.84 (kg/m2) Weight (lbs.): 216 Weight (kg.): 97.98 Medications upon Admission Medications Dosage Times Administered Last Remarks per Delivery Day Date and Time Statin (any) LIPITOR Lab Results Lab Result Date: 04/14/2019 Lab Result Time: 11:45 Biochemistry Name Units Result Min Max BUN mg/dl 22 --(----)-* 7 18 Creatinine mg/dl 1.1 --(--*-)-- 0.6 1.3 CBC Name Units Result Min Max Hematocrit % 35 *-(----)-- 42 54 Hemoglobin g/dl 11.9 *-(----)-- 13.5 17.5 Procedure Procedure Types Cath Procedure Diagnostic Procedure LHC LHC w/Coronaries w/Grafts Sedation Charges Moderate Sedation up to 45 minutes PCI Procedure AMI/SVG/SCIENTIFIC RESEARCH MANAGER PTCA or Stent SVG-BMS/CRISTINA Initial Procedure Description Procedure Date Procedure Date: 04/14/2019 Procedure Start Time: 13:15 Procedure End Time: 13:52 Procedure Staff Name Function Bunny Santiago MD Performing Physician Rasheeda Villarreal RN Nurse Dimas Nunez RT Scrub Nicole Pugh RT Scrub Ceci Billingsley RT Monitor Indication CAD Shortness of breath Procedure Data Cath Procedure Fluoroscopy Diagnostic fluoroscopy Total fluoroscopy Time: 8.7 time: 8.7 min min Diagnostic fluoroscopy Total fluoroscopy dose: dose: 1137 mGy 1137 mGy Contrast Material Contrast Material Type Amount (ml) Isovue 300 170 Entry Location Entry Primary Successful Side Size Upsize Upsize Entry Closure Succes sful Closure Location (Fr) 1 (Fr) 2 (Fr) Remarks Device Remarks Femoral Right 5 Fr 6 Fr Exoseal artery Short Estimated blood loss: 10 ml Diagnostic catheters Device Type Used For End Catheter Placement MULTIPACK JL 4.0 5Fr Procedure catheter DIAGNOSTIC AR MOD 5Fr Procedure Catheter ([id number]) DIAGNOSTIC IM 5Fr Procedure catheter ([id number]) MULTIPACK Pigtail 5 Fr Procedure catheter Procedure Complications No complications Procedure Medications Medication Administration Route Dosage Oxygen etCO2 Nasal cannula 2 l/min Lidocaine 2% added to field 20 Heparin Flush Bag added to field 2 bags (1000units/500ml NS) 0.9% NaCl I.V. 100 ml/hr Versed I.V. 1 mg Fentanyl I.V. 50 mcg Versed I.V. 1 mg Fentanyl I.V. 50 mcg Versed I.V. 1 mg Fentanyl I.V. 50 mcg Heparin [place]us [place].V. 55409 units Nitroglycerin IC/IA I.C. 100 mcg Versed I.V. 1 mg Fentanyl I.V. 50 mcg Nitroglycerin IC/IA I.C. 50 mcg Plavix P.O. 600 mg Hemodynamics Rest BSA: 2.11 (m2) O2 Consumption: Estimated: 254.42 (ml/min) O2 Consumption indexed : Estimated:120.58 (ml/min/m) Heart Rate: 83 (bpm) Pressure Samples Time Site Value (mmHg) Purpose Heart Use Rate(bpm) 13:29 LV 159/-3,17 Snapshot 83 13:29 AO 144/68(103) Pullback 88 13:29 LV 161/-9,58 Pullback 88 Gradients Valve Time Site 1 Site 2 Mean SEP/DFP Peak To Heart Use (mmHg) (sec/min) Peak Rate (mmHg) (bpm) Aortic 13:29 LV AO 17 21 17 88 161/-9,58 144/68(103) Calculations Valve P-P Mean Valve Index Valve Source Name Gradient Area Flow (cm2) Aortic 17 17 17 17 Snapshots Pre Cath Intra NCS Post Cath Vital Signs Time Heart Resp SPO2 etCO2 NIBP (mmHg) Rhythm Pain Sedation Rate (ipm) (%) (mmHg) Status Level (bpm) 13:07:52 80 17 98 0 152/88(117) NSR 0 (11) 10(A) , No pain 13:12:10 82 16 97 26.2 147/88(123) NSR 0 (11) 10(A) , No pain 13:16:31 82 18 98 20.9 155/81(131) NSR 0 (11) 10(A) , No pain 13:20:51 84 17 98 34.4 166/86(137) NSR 0 (11) 9(A) , No pain 13:25:11 86 18 98 16.4 153/86(129) NSR 0 (11) 9(A) , No pain 13:29:27 94 19 99 30.7 152/96(125) NSR 0 (11) 9(A) , No pain 13:33:43 84 16 96 17.9 150/88(123) NSR 0 (11) 9(A) , No pain 13:38:03 86 15 96 13.4 143/81(104) NSR 0 (11) 9(A) , No pain 13:42:17 89 14 97 0 128/85(101) NSR 0 (11) 9(A) , No pain 13:46:29 88 15 97 0 144/87(116) NSR 0 (11) 9(A) , No pain 13:50:49 87 16 98 18.7 144/85(134) NSR 0 (11) 10(A) , No pain Medications Time Medication Route Dose Verified Delivered Reason Note s Effectiveness by by 13:06:52 Oxygen etCO2 2 Bunny Buffie used for Nasal l/min Jack Villarreal RN procedure cannula 13:07:00 Lidocaine 2% added 20ml Bunny Bunny for local to vial Jack Santiago MD anesthetic field 13:07:08 Heparin Flush added 2 bags Bunny Bunny used for Bag to Jack Santiago MD procedure (1000units/500ml field NS) 13:07:20 0.9% NaCl I.V. 100 Bunny Buffie Per physician ml/hr Jack Villarreal RN 13:12:23 Versed I.V. 1 mg Bunny Buffie for sedation Jack Villarreal RN 13:12:29 Fentanyl I.V. 50 mcg Bunny Buffie for sedation Jack Villarreal RN 13:18:10 Versed I.V. 1 mg Bunny Buffie for sedation Jack Villarreal RN 13:18:14 Fentanyl I.V. 50 mcg Bunny Buffie for sedation Jack Villarreal RN 13:22:32 Versed I.V. 1 mg Bunny Buffie for sedation Jack Villarreal RN 13:22:46 Fentanyl I.V. 50 mcg Bunny Buffie for sedation Jack Villarreal RN 13:31:04 Heparin Bolus I.V. 10,000 Bunny Buffie for veri fied units Jack Villarreal RN anticoagulation with dr santiago 13:33:34 Nitroglycerin I.C. 100 Bunny Bunny for IC/IA mcg Jack Santiago MD vasodilation 13:37:15 Versed I.V. 1 mg Bunny Bunny for sedation Jack Santiago MD 13:37:19 Fentanyl I.V. 50 mcg Bunny Bunny for sedation Jack Santiago MD 13:40:03 Nitroglycerin I.C. 50 mcg Bunyn Bunny for IC/IA Jack Santiago MD vasodilation 13:51:21 Plavix P.O. 600 mg Bunny Buffie for Jack Villarreal RN antiplatelet therapy Procedure Log Time Note 12:41:08 Patient Height : 68 inches 12:41:15 Patient Weight : 216 lbs 12:41:29 Admit Source: Other 12:41:34 Insurance Payor : Private health insurance 12:47:19 Procedure Status Elective Heart Cath (OP). 12:47:21 Rasheeda Villarreal RN sent for patient. Start room use. 12:47:23 Time tracking: Regular hours (M-F 7:00 - 5:00) 12:47:26 Plan of Care:Hemodynamics will remain stable., Cardiac rhythm will remain stable., Comfort level will be maintained., Respiratory function will remain adequate., Patient/ family verbilizes understanding of procedure., Procedure tolerated without complication., Recovers from procedure without complications.. 12:49:07 H&P Date Dictated: 03/23/2019 Within 30 days and on chart., H&P Addendum completed by physician on day of procedure. (MUST COMPLETE FOR ALL OUTPATIENTS). 12:49:18 Arrival Date: 04/14/2019 12:00:00 AM 12:51:11 Lab Result : Hemoglobin 11.9 g/dl 12:51:11 Lab Result : Hematocrit 35 % 12:51:11 Lab Result : BUN 22 mg/dl 12:51:11 Lab Result : Creatinine 1.1 mg/dl 12:51:19 Patient received from Pre/Post Procedure Room to CCL 1 Alert and oriented. Tansferred to table in Supine position. 12:51:21 Signed procedure consent form obtained from patient. 12:51:23 Warm blankets applied, and thuy hugger turned on for patient comfort. 12:51:23 Correct patient and procedure confirmed by team. 12:51:24 Pre-procedure instructions explained to patient. 12:51:25 Pre-op teaching completed and patient verbalized understanding. 12:51:26 Family in waiting room. 12:51:28 Patient NPO since Midnight. 12:51:33 Patient allergic to No known allergies 12:53:20 Is the patient allergic to Iodine/contrast media? No. 12:53:21 Is patient on blood thinner?Yes 12:53:23 ACC The patient was administered the following blood thiners within the last 24 hours: ACCPlavix 12:53:25 Patient diabetic? Yes. 12:53:26 If diabetic: On Metformin? Yes 12:53:28 If on Metformin: Last Dose? 04/12/2019 12:53:31 Previous problem with sedation/anesthesia? No ? 12:53:33 Snore? Yes 12:53:33 Sleep apnea? No 12:53:34 Deviated septum? No 12:53:35 Opens mouth fully? Yes 12:53:36 Sticks out tongue? Yes 12:53:37 Airway obstruction? No ? 12:53:39 Dentures? No ? 13:00:03 Pre procedure: right dorsailis pedis pulse Doppler 13:00:06 Patient pain scale 0/10 ?. 13:00:10 IV patent on arrival in left hand with 0.9% NaCl at [facility]. 13:00:12 Lab results completed and on chart. 13:00:15 Right groin area was prepped with chlora-prep and draped in sterile fashion 13:00:16 Alarms reviewed by R. N. 13:00:16 Sharps counted by scrub and verified by R.N. 13:00:21 Use device set Femoral Dx 13:00:22 ACIST Syringe (35504) opened to sterile field. 13:00:23 Bag Decanter (2002S) opened to sterile field. 13:00:24 ACIST Hand Control (98651) opened to sterile field. 13:00:25 ACIST Manifold (56620) opened to sterile field. 13:00:26 Tegaderm 4 x 4 (1626W) opened to sterile field. 13:00:28 Medline Cath Pack ([id number]) opened to sterile field. 13:00:29 DIAGNOSTIC Multipack 5Fr catheter set (PR6528) opened to sterile field. 13:00:30 SHEATH 5FR Stoddard (PRN214) opened to sterile field. 13:00:30 EMERALD Guide Wire (395-940) opened to sterile field. 13:01:17 Diagnostic Cath Status : Elective 13:01:19 PCI Cath Status : Elective 13:01:42 Procedure type changed to Cath procedure, Diagnostic procedure, LHC, LHC w/Coronaries w/Grafts, Sedation Charges, Moderate Sedation up to 45 minutes, PCI procedure, AMI/SVG/SCIENTIFIC RESEARCH MANAGER PTCA or Stent, SVG-BMS/CRISTINA Initial 13:01:56 Indication : CAD 13:02:16 Indication : Shortness of breath 13:06:38 Vital chart was started 13:06:52 Oxygen 2 l/min etCO2 Nasal cannula was administered by Rasheeda Villarreal RN; used for procedure; 13:07:00 Lidocaine 2% 20ml vial added to field was administered by Bunny Santiago MD; for local anesthetic; 13:07:08 Heparin Flush Bag (1000units/500ml NS) 2 bags added to field was administered by Bunny Santiago MD; used for procedure; 13:07:20 0.9% NaCl 100 ml/hr I.V. was administered by Rasheeda Villarreal RN; Per physician; 13:09:37 Zero performed for pressure channel P1 13:11:43 --------ALL STOP TIME OUT------ 13:11:44 Final Timeout: patient, procedure, and site verified with staff and physician. All members of the team are in agreement. 13:11:46 Right groin site verified by team. 13:11:49 Fire Safety Assessment: A--An alcohol-based skin anteseptic being used preoperatively., C--Open oxygen or nitrous oxide is being used., D--An ESU, laser, or fiber-optic light is being used. 13:11:52 Physical assessment completed. ASA score P 2 - A patient with mild systemic disease as per Bunny Santiago MD. 13:11:57 2) 60-89 Mildly reduced kidney function, and other findings (as for stage 1) point to kidney disease. 13:12:01 Maximum allowable contrast dose (3.7 X eGFR X 0.75)194 ml. 13:12:05 Sedation plan: IV Moderate Sedation Medication:Versed, Fentanyl 13:12:23 Versed 1 mg I.V. was administered by Rasheeda Villarreal RN; for sedation; 13:12:29 Fentanyl 50 mcg I.V. was administered by Rasheeda Villarreal RN; for sedation; 13:15:48 Procedure started. 13:15:48 Full Disclosure recording started 13:15:58 Local anesthetic to right femoral artery with Lidocaine 2% by Bunny Santiago MD.INITIAL ACCESS ONLY 13:17:51 A 5 Fr sheath was inserted into the Right Femoral artery 13:18:10 Versed 1 mg I.V. was administered by Rasheeda Villarreal RN; for sedation; 13:18:14 Fentanyl 50 mcg I.V. was administered by Rasheeda Villarreal RN; for sedation; 13:19:09 A MULTIPACK JL 4.0 5Fr catheter was advanced over the wire and used for Procedure. 13:20:39 LCA angiography performed. 13:20:45 Catheter exchanged over wire. 13:22:29 A DIAGNOSTIC AR MOD 5Fr Catheter ([id number]) was advanced over the wire and used for Procedure. 13:22:32 Versed 1 mg I.V. was administered by Rasheeda Villarreal RN; for sedation; 13::41 SVG to RCA angiography performed. 13:22:46 Fentanyl 50 mcg I.V. was administered by Rasheeda Villarreal RN; for sedation; 13:24:08 SVG to Circ angiography performed. 13:24:34 Catheter exchanged over wire. 13:25:16 A DIAGNOSTIC IM 5Fr catheter ([id number]) was advanced over the wire and used for Procedure. 13:27:01 PEDRO to LAD angiography performed. 13:27:23 Catheter exchanged over wire. 13:27:28 ACCDominant side:Left 13:27:36 Proceeding to intervention. 13:27:39 SHEATH 6FR Stoddard (IHN542) opened to sterile field. 13:27:39 INFLATOR Merit BasixCompak (NK1650) opened to sterile field. 13:27:40 BMW 300cm Straight Dutton 2 wire (5137419) opened to sterile field. 13:27:40 TUBING High Pressure Extension Tubing (Jack) (PD0176J) opened to sterile field. 13:27:41 GUIDE 6FR AR 1.0 catheter (AU9RO18) opened to sterile field. 13:27:55 A MULTIPACK Pigtail 5 Fr catheter was advanced over the wire and used for Procedure. 13:28:31 LV gram done using GARCIA 13:28:34 Injector settings: Ml/sec: 10, Volume: 20, 13:29:06 LV hemodynamics recorded. 13:29:26 EF : 50 % 13:29:43 Catheter exchanged over wire. 13:30:28 Sheath upsized to a 6 Fr Short. 13:31:04 Heparin Bolus 10,000 units I.V. was administered by Rasheeda Villarreal RN; for anticoagulation; verified with dr santiago 13:31:29 6 Fr AR 1 guide catheter was inserted over the wire 13:33:34 Nitroglycerin IC/IA 100 mcg I.C. was administered by Bunny Santiago MD; for vasodilation; 13:35:41 BMW 300 wire advanced. 13:36:09 Wire advanced across lesion. 13:37:15 Versed 1 mg I.V. was administered by Bunny Santiago MD; for sedation; 13:37:19 Fentanyl 50 mcg I.V. was administered by Bunny Santiago MD; for sedation; 13:38:19 Place stent Inflation Number: 1 A ALEX OTW 3.0 x 12 stent ([id number]) was prepped and advanced across the Aorta Right -> Dist RCA . The stent was deployed at 12 TJ for 0:10 (min:sec) . 13:40:03 Nitroglycerin IC/IA 50 mcg I.C. was administered by Bunny Santiago MD; for vasodilation; 13:41:07 Stent catheter was removed intact over wire. 13:41:57 BMW 300cm Straight Dutton 2 wire ([id number]) opened to sterile field. 13:42:52 2ND BMW 300 ADVANCED 13:43:17 Wire advanced across lesion. 13:43:38 1ST BMW REMOVED 13:46:20 Place stent Inflation Number: 2 A ALEX OTW 3.0 x 34 stent ([id number]) was prepped and advanced across the Aorta Right -> Dist RCA . The stent was deployed at 10 TJ for 0:10 (min:sec) . 13:46:43 Stent catheter was removed intact over wire. 13:47:25 Wire removed. 13:47:26 Guide catheter removed. 13:47:38 EXOSEAL 6Fr (EX600) opened to sterile field. 13:48:21 ACT drawn and resulted at 289 seconds. (normal therapeutic range 180-240 seconds). 13:49:31 Sheath removed intact; hemostasis achieved with Exoseal to the Right Femoral artery. 13:49:33 Procedure ended.(Physican Out) 13:49:53 Contrast amount:Isovue 300 170ml. 13:49:57 Maximum allowable dose exceeded? No. 13:50:08 Fluoroscopy time 08.70 minutes. 13:50:12 Flurop Dose total: 1137 13:50:12 Fluoroscopy dose: 1137 mGy 13:50:18 Dose Area Product 56017 mGy/cm. 13:50:37 Post-op/insertion site Right Femoral artery dressed using a 4 x 4 and Tegaderm. 13:50:39 Post-procedure physical assessment completed. ASA score P 2 - A patient with mild systemic disease as per Bunny Santiago MD. 13:50:42 Post procedure rhythm: sinus rhythm 13:50:44 Estimated blood loss: 10 ml 13:50:46 Post procedure instruction explained to patient.Patient verbalizes understanding. 13:50:46 Patient needs reinforcement of post procedure teaching. 13:51:21 Plavix 600 mg P.O. was administered by Rasheeda Villarreal RN; for antiplatelet therapy; 13:52:38 Procedure and supply charges have been captured, reviewed, submitted and are correct. 13:52:40 Procedure Complication : No complications 13:52:41 Vital chart was stopped 13:52:42 See physician's report for complete and final results. 13:52:43 Report given to Pre/Post Procedure Room. 13:52:46 Patient transfered to Pre/Post Procedure Room with Bed. 13:52:48 Procedure ended. 13:52:48 Full Disclosure recording stopped 13:52:52 End room use (Document Last) Intervention Summary Intervention Notes Time ActionType Lesion and Equipment Action# Pressure Duration Attributes Used 13:38:19 Place stent Aorta Right ALEX OTW 3.0 1 12 00:10 -> Dist RCA x 12 stent ([id number]) 13:46:20 Place stent Aorta Right ALEX OTW 3.0 2 10 00:10 -> Dist RCA x 34 stent ([id number]) Device Usage Item Name Manufacture Quantity Catalog Hospital Part Current Mini mal Lot# / Number Charge Number Stock Stock Serial# Code ACIST Syringe Acist 1 74636 253462 632567 891874 20 (13017) Medical Systems Inc Bag Decanter Microtek 1 2001S 459797 78157 698592 5 (2001S) Medical Inc. ACIST Hand Acist 1 01091 727844 481786 929521 5 Control Medical (08365) Systems Inc ACIST Acist 1 29476 204640 698993 456474 5 Manifold Medical (89470) Systems Inc Tegaderm 4 x 3M 1 1626W 134927 698438 558283 5 4 (1626W) Medline Cath Medline 1 [id number] 568642 63368 944825 5 Pack ([id number]) DIAGNOSTIC Cardinal 1 SP8023 465708 33153 231678 30 Multipack 5Fr Health catheter set (OB9813) SHEATH 5FR Terumo 1 NYF415 068246 970750 974662 5 Stoddard (JCA809) EMERALD Guide Cardinal 1 502-455 311516 058021 207895 5 Wire Health (502-478) MULTIPACK JL Cardinal 1 181098 5 4.0 5Fr Health catheter DIAGNOSTIC AR Cardinal 1 [id number] 886098 560901 828229 15 MOD 5Fr Health Catheter (564124W) DIAGNOSTIC IM Cardinal 1 [id number] 084536 504862 369985 5 5Fr catheter Health (578689N) SHEATH 6FR Terumo 1 DNU880 711178 822862 285426 40 Stoddard (GCE759) INFLATOR Merit 1 NU9358 576698 043155 858659 15 Merit Medical BasixCompak (GT7509) BMW 300cm Calzada 2 0483243 906830 646754 982740 5 Straight Vascular Dutton 2 wire (6506503) TUBING High Merit 1 [id number] 182347 93577 650994 10 Pressure Medical Extension Tubing (Santiago) (LG6175R) GUIDE 6FR AR Medtronic 1 CU9IF03 810600 44131 144037 1 1.0 catheter (LC5RC00) MULTIPACK Cardinal 1 483668 5 Pigtail 5 Fr Health catheter ALEX OTW 3.0 Medtronic 1 [id number] 342955 2001491 116774 5 [id number] x 12 stent ([id number]) ALEX OTW 3.0 Medtronic 1 [id number] 002044 2683546 283939 5 [id number] x 34 stent ([id number]) EXOSEAL 6Fr Cardinal 1 EX600 595369 876312 650920 10 (EX600) Health Signature Audit [place] Stage Time Signature Unsigned Intra-Procedure 04/14/2019 Ceci Billingsley 1:56:26 PM RT(R) Signatures Performing Physician : Signature : Bunny Santiago MD Date : Time : Nurse : Rasheeda Villarreal RN Signature : Date : Time : Monitor : Ceci Billingsley Signature : RT Date : Time : [place] [address] [place] [address]
[2019-04-14] MEDS ORDERED: GEMFIBROZIL600 MG PO (10:57)
[2019-04-14] MEDS ORDERED: TOUJEO SOL300 UNIT/1 SC (10:59)
[2019-04-14 11:11] VITALS: BP 113/77; Ht 172.7 cm; Wt 98.2 kg
[2019-04-14 12:16] LABS: ANION GAP 15.2 mmol/L (8-16); CALCIUM 8.9 mg/dL (8.5-10.1); CARBON DIOXIDE 22.5 mmol/L (21.0-32.0); CREATININE - SERUM 1.1 mg/dL (0.6-1.3); POTASSIUM - SERUM 4.7 mmol/L (3.5-5.1)
[2019-04-14 12:18] LABS: HEMOGLOBIN 11.9 g/dL (13.5-17.5); LYMPHOCYTES 40.8 % (15-50); MCH 31.4 pg (26.0-34.0); MCV 92.3 fL (80.0-100.0); MEAN PLATELET VOLUME 11.9 fL (7.4-10.4); NEUTROPHILS 50.2 % (40-80); PLATELET COUNT 220 10x3/uL (130-400); RBC 3.79 10x6/uL (4.20-6.10); WBC 7.4 10x3/uL (4.8-10.8)
--- NOTE | 2019-04-14 14:00 | NUR ---
PT RECEIVED VIA STRETCHER FROM SECURITY INTERN FOR RECOVERY. PT DROWSY BUT AROUSABLE TO VERBAL STIMULI. IV PATENT INFUSING VIA L ARM PER ORDERS. R GROIN W 6FR EXOCELE, DRESSING CDI NO BLEEDING OR HEMATOMA NOTED. LEG PINK AND WARM, PEDAL PULSES PALPABLE. HR NSR RATE 87, BP 153/88, O2 SAT 97 ON ROOM AIR. PT DENIES CHEST PAIN OR ANY DISCOMFORT. PT INSTRUCTED TO KEEP HEAD ON PILLOW AND LEG STRAIGHT, HE VERBALIZED UNDERSTANDING. CALL LIGHT IN REACH, NO FAMILY PRESENT
--- NOTE | 2019-04-14 14:36 | NUR ---
PT RESTING COMFORTABLY W EYES CLOSED. R GROIN SOFT, DRESSING CDI NO BLEEDING OR HEMATOMA NOTED. LEG PINK AND WARM, PEDAL PULSES PALPABLE. PT STATES HEARTBURN BETTER, DENIES ANY OTHER DISCOMFORT. VSS. CALL LIGHT IN REACH
--- NOTE | 2019-04-14 15:15 | NUR ---
PT RESTING COMFORTABLY, WATCHING TV. NO C/O PAIN OR DISCOMFORT. R GROIN SOFT, DRESSING REMAINS CDI NO BLEEDING OR HEMATOMA NOTED. IV PATENT INFUSING VIA ORDERS. VSS. CALL LIGHT IN REACH
--- NOTE | 2019-04-14 15:45 | NUR ---
PT WATCHING TV, DENIES PAIN OR DISCOMFORT. URINAL GIVEN, DENIES NEED FOR ASSISTANCE. R GROIN DRESSING CDI NO BLEEDING OR SWELLING NOTED. LEG PINK AND WARM, PEDAL PULSES PALPABLE. CALL LIGHT IN REACH. VSS
--- NOTE | 2019-04-14 16:12 | NUR ---
PT VOIDED 600 CC CLEAR YELLOW URINE IN URINAL. GROIN REMAINS W/O BLEEDING OR SWELLING. DRESSING CDI. DENIES PAIN OR DISCOMFORT. HR NSR RATE 82, BP 172/82, O2 SAT 96 ON ROOM AIR. CALL LIGHT IN REACH.
--- NOTE | 2019-04-14 16:45 | NUR ---
R GROIN REMAINS SOFT, DRESSING CDI NO BLEEDING OR HEMATOMA NOTED. HOB ELEVATED SLIGHTLY, SANDWICH TRAY SERVED. PT DENIES ANY OTHER NEEDS AT THIS TIME. CALL LIGHT IN REACH. VSS.
--- NOTE | 2019-04-14 17:20 | NUR ---
PT TOLERATED SANDWICH TRAY W/O N/V. GROIN REMAINS SOFT, DRESSING CDI NO BLEEDING OR HEMATOMA NOTED. CALL LIGHT IN REACH, FAMILY WILL BE HERE FOR DISCHARGE AT 1750. PT DENIES PAIN OR NEEDS AT THIS TIME.
--- NOTE | 2019-04-14 17:39 | NUR ---
DISCHARGE INSTRUCTIONS REVIEWED W PT, HE VERBALIZED UNDERSTANDING. EXPLAINED IMPORTANCE OF HIM TAKING HIS PLAVIX DAILY STARTING TOMORROW AND NOT MISSING ANY DOSES, HE VERBALIZED UNDERSTANDING. IV REMOVED W CATH INTACT, MONITORS REMOVED AND PT UP TO DRESS FOR DISCHARGE.
--- NOTE | 2019-04-14 17:52 | NUR ---
PT DISCHARGED TO PRIVATE VEHICLE VIA WC WITH ALL BELONGINGS.
== END 2019-04-14 17:50 | disposition home or self-care (01) ==
LOC: D.CATH 10:35
PROVIDERS: ATTEND Internal Medicine Cardiovascular Disease
DX: I25.119 Atherosclerotic heart disease of native coronary artery with unspecified angina pectoris (principal); I25.719 Atherosclerosis of autologous vein coronary artery bypass graft(s) with unspecified angina pectoris; Z01.812 Encounter for preprocedural laboratory examination

== ENCOUNTER 2019-04-23 06:39 | Outpatient (CLI) | payer MEDICARE ==
[~2019-04-23] VITALS: Ht 172.7 cm; Wt 98.2 kg
--- NOTE | ~2019-04-23 | HEMODYNAMI ---
PATIENT:LAURA LEON MEDICAL RECORD: [id number] : 48 LOCATION:[facility] ADMISSION DATE: 04/23/19 Generatedon:04/23/201910:39 Patient name: LAURA LEON Patient #: [id number] SSN: [id number] : 1950 Date of study: 04/23/2019 Page: Of Hemodynamic Procedure Report Patient Data Patient Demographics Procedure consent was obtained First Name: LAURA Gender: Male Last Name: CAROLYN : 1950 [facility] Initial: F Age: 69 year(s) Patient #: [id number] Race: SSN: [id number] Additional ID: [id number] Contact details Address: [address] [place] [address] State: [place] City: [place] Zip code: [address] Past Medical History History of disease Date Diagnosis Comments CAD Allergies: No known allergies Admission Admission Data Admission Date: 04/23/2019 Admission Time: 6:39 Arrival Date: 04/23/2019 Arrival Time: 10:30 Admit Source: Other Insurance Payor: Private health insurance Height (in.): 68 BSA: 2.11 (m2) Height (cm.): 172.72 BMI: 32.84 (kg/m2) Weight (lbs.): 216 Weight (kg.): 97.98 Lab Results Lab Result Date: 04/23/2019 Lab Result Time: 0:00 Biochemistry Name Units Result Min Max BUN mg/dl 19 --(----)*- 7 18 Creatinine mg/dl 1.1 --(--*-)-- 0.6 1.3 CBC Name Units Result Min Max Hemoglobin g/dl 11.6 *-(----)-- 13.5 17.5 Procedure Procedure Types Cath Procedure PCI Procedure AMI/SVG/CITY WELLNESS COORDINATOR PTCA or Stent SVG-BMS/CRISTINA Initial Procedure Description Procedure Date Procedure Date: 04/23/2019 Procedure Start Time: 10:17 Procedure End Time: 10:39 Procedure Staff Name Function Bunny Santiago MD Performing Physician Mary Ponce RT Monitor Lia Kim RT Scrub Elvira Wallace RN Nurse Additional PCI Information PCI indication: Staged PCI Procedure Data Cath Procedure Fluoroscopy Diagnostic fluoroscopy Total fluoroscopy Time: 3.7 time: 3.7 min min Diagnostic fluoroscopy Total fluoroscopy dose: 648 dose: 648 mGy mGy Contrast Material Contrast Material Type Amount (ml) Isovue 300 64 Entry Location Entry Primary Successful Side Size Upsize Upsize Entry Closure Succes sful Closure Location (Fr) 1 (Fr) 2 (Fr) Remarks Device Remarks Femoral Right 6 Fr Exoseal artery Short Estimated blood loss: 10 ml Procedure Complications No complications Procedure Medications Medication Administration Route Dosage Oxygen etCO2 Nasal cannula 2 l/min Heparin Flush Bag added to field 2 bags (1000units/500ml NS) 0.9% NaCl I.V. 100 ml/hr Lidocaine 2% added to field 20 Fentanyl I.V. 50 mcg Versed I.V. 1 mg Fentanyl I.V. 50 mcg Versed I.V. 1 mg Heparin Bolus I.V. 9500 units Fentanyl I.V. 50 mcg Hemodynamics Rest BSA: 2.11 (m2) HGB: 11.6 (g/dl) O2 Consumption: Estimated: 247.89 (ml/min) O2 Co nsumption indexed: Estimated:117.48 (ml/min/m) Heart Rate: 75 (bpm) Snapshots Pre Cath Intra NCS Post Cath Vital Signs Time Heart Resp SPO2 etCO2 NIBP (mmHg) Rhythm Pain Sedation Rate (ipm) (%) (mmHg) Status Level (bpm) 10:01:40 73 16 98 0 160/84(127) NSR 0 (11) 10(A) , No pain 10:06:02 72 17 98 35.2 161/88(129) NSR 0 (11) 10(A) , No pain 10:10:15 71 16 95 40.4 151/86(133) NSR 0 (11) 10(A) , No pain 10:14:20 74 16 100 24.7 139/90(125) NSR 0 (11) 10(A) , No pain 10:18:59 72 16 100 27.7 163/83(129) NSR 0 (11) 9(A) , No pain 10:23:00 75 17 100 38.9 166/93(132) NSR 0 (11) 9(A) , No pain 10:26:58 80 17 94 0 154/96(126) NSR 0 (11) 9(A) , No pain 10:30:56 83 16 100 29.2 158/96(131) NSR 0 (11) 9(A) , No pain 10:35:32 85 17 99 24.7 179/106(147) NSR 0 (11) 9(A) , No pain 10:37:52 87 10 100 36.7 184/114(152) NSR 0 (11) 9(A) , No pain Medications Time Medication Route Dose Verified Delivered Reason Notes Effectiveness by by 10:03:00 Oxygen etCO2 2 Bunny Meño Per physician Nasal l/min Jack Garibay RN cannula 10:03:08 Heparin Flush added 2 Bunny Meño used for Bag to bags Jack Garibay RN procedure (1000units/500ml field NS) 10:03:16 0.9% NaCl I.V. 100 Bunny Meño Per physician ml/hr Jack Garibay RN 10:03:33 Lidocaine 2% added 20ml Bunny Meño used for to vial Jack Garibay RN procedure field 10:17:28 Fentanyl I.V. 50 Bunny Meño for sedation mcg Jack Garibay RN 10:17:34 Versed I.V. 1 mg Bunny Meño for sedation Jack Garibay RN 10:22:23 Fentanyl I.V. 50 Bunny Meño for sedation mcg Jack Garibay RN 10:22:27 Versed I.V. 1 mg Bunny Meño for sedation Jack Garibay RN 10:22:43 Heparin Bolus I.V. 9500 Bunny Meño for units Jack Garibay RN anticoagulation 10:30:55 Fentanyl I.V. 50 Bunny Meño for sedation mcg Jack Garibay RN Procedure Log Time Note 9:22:00 Informed consent obtained and on chart 9:22:14 Diagnostic Cath Status : Elective 9:25:10 Admit Source: Other 9:25:12 Arrival Date: 04/23/2019 10:30:00 AM 9:25:20 Insurance Payor : Private health insurance 9:25:29 Patient Height : 68 inches 9:25:34 Patient Weight : 216 lbs 9::55 Lab Result : Hemoglobin 11.6 g/dl 9::55 Lab Result : Creatinine 1.1 mg/dl 9::55 Lab Result : BUN 19 mg/dl 9:27:12 ACC Patient presents with Non-STEMI CCS Anginal Class 2--Slight limitation of ordinary activity. 9:27:43 ACCPatient has been prescribed/administered the following anti-anginal medication within the last 2 weeks: None 9:27:53 Procedure Status Elective Heart Cath (OP). 9:28:13 2) 60-89 Mildly reduced kidney function, and other findings (as for stage 1) point to kidney disease. 9:28:39 Maximum allowable contrast dose (3.7 X eGFR X 0.75)194 ml. 9:53:40 Lia Kim RT(R) sent for patient. Start room use. 10:00:12 Time tracking: Regular hours (M-F 7:00 - 5:00) 10:00:16 Plan of Care:Hemodynamics will remain stable., Cardiac rhythm will remain stable., Comfort level will be maintained., Respiratory function will remain adequate., Patient/ family verbilizes understanding of procedure., Procedure tolerated without complication., Recovers from procedure without complications.. 10:00:20 Patient received from Pre/Post Procedure Room to CCL 2 Alert and oriented. Tansferred to table in Supine position. 10:00:23 Warm blankets applied, and thuy hugger turned on for patient comfort. 10:00:23 Correct patient and procedure confirmed by team. 10:00:23 ECG and BP/O2 sat monitors applied to patient. 10:00:24 Vital chart was started 10:00:31 Baseline sample Acquired. 10:00:34 Rhythm: sinus rhythm 10:00:36 Full Disclosure recording started 10:00:41 H&P Date Dictated: 04/23/2019 Within 30 days and on chart., H&P Addendum completed by physician on day of procedure. (MUST COMPLETE FOR ALL OUTPATIENTS). 10:00:43 Pre-procedure instructions explained to patient. 10:00:43 Pre-op teaching completed and patient verbalized understanding. 10:00:45 Family unavailable. 10:00:48 Patient NPO since Midnight. 10:00:49 Is the patient allergic to Iodine/contrast media? No. 10:00:51 Was the patient premedicated? No 10:00:57 Patient diabetic? Yes. 10:01:00 If diabetic: On Metformin? Yes 10:01:05 If on Metformin: Last Dose? 04/21/2019 10:01:10 Previous problem with sedation/anesthesia? No ? 10:01:11 Snore? Yes 10:01:13 Sleep apnea? No 10:01:16 Deviated septum? No 10:01:16 Opens mouth fully? Yes 10:01:17 Sticks out tongue? Yes 10:01:19 Airway obstruction? No ? 10:01:21 Dentures? No ? 10:01:26 Is patient on blood thinner?Yes 10:01:28 ACC The patient was administered the following blood thiners within the last 24 hours: ACCPlavix 10:01:35 Pre procedure: right dorsailis pedis pulse 2+ Normal; easily identifiable; not easily obliterated 10:01:36 Pre procedure: left dorsailis pedis pulse 2+ Normal; easily identifiable; not easily obliterated 10:01:38 Patient pain scale 0/10 ?. 10:01:43 IV patent on arrival in left forearm with 0.9% NaCl at [facility]. 10:01:46 Lab results completed and on chart. 10:01:50 Right groin area was prepped with chlora-prep and draped in sterile fashion 10:01:51 Alarms reviewed by R. N. 10:01:51 Sharps counted by scrub and verified by R.N. 10:03:00 Oxygen 2 l/min etCO2 Nasal cannula was administered by Meño Garibay RN; Per physician; 10:03:08 Heparin Flush Bag (1000units/500ml NS) 2 bags added to field was administered by Meño Garibay RN; used for procedure; 10:03:16 0.9% NaCl 100 ml/hr I.V. was administered by Meño Garibay RN; Per physician; 10:03:33 Lidocaine 2% 20ml vial added to field was administered by Meño Garibay RN; used for procedure; 10:06:45 Physician paged 10:06:47 Physician arrived 10:07:16 Procedure type changed to Cath procedure, PCI procedure, AMI/SVG/CITY WELLNESS COORDINATOR PTCA or Stent, SVG-BMS/CRISTINA Initial 10:09:22 PCI Indication : Staged PCI 10:16:19 GUIDE 6FR AR 1.0 catheter ([id number]) opened to sterile field. 10:16:23 --------ALL STOP TIME OUT------ 10:16:24 Final Timeout: patient, procedure, and site verified with staff and physician. All members of the team are in agreement. 10:16:26 Right groin site verified by team. 10:16:30 Fire Safety Assessment: A--An alcohol-based skin anteseptic being used preoperatively., C--Open oxygen or nitrous oxide is being used., D--An ESU, laser, or fiber-optic light is being used. 10:16:43 Physical assessment completed. ASA score P 3 - A patient with severe systemic disease as per Bunny Santiago MD. 10:16:47 Sedation plan: IV Moderate Sedation Medication:Versed, Fentanyl 10:17:00 Use device set Femoral Dx 10:17:03 Procedure started. 10:17:28 Fentanyl 50 mcg I.V. was administered by Meño Garibay RN; for sedation; 10:17:33 Local anesthetic to right femoral artery with Lidocaine 2% by Mary NARVAEZ(R).INITIAL ACCESS ONLY 10:17:34 Versed 1 mg I.V. was administered by Meño Gariaby RN; for sedation; 10:18:15 A 6 Fr Short sheath was inserted into the Right Femoral artery 10:19:31 ACIST Syringe (19343) opened to sterile field. 10:19:32 Bag Decanter () opened to sterile field. 10:19:32 Medline Cath Pack ([id number]) opened to sterile field. 10:19:33 ACIST Hand Control (37900) opened to sterile field. 10:19:34 ACIST Manifold (89833) opened to sterile field. 10:19:39 Tegaderm 4 x 4 (1626W) opened to sterile field. 10:19:42 EMERALD Guide Wire (062-171) opened to sterile field. 10:20:31 INFLATOR Merit BasixCompak (OE9960) opened to sterile field. 10:20:32 BMW 300cm Evening Shade 2 J wire ([id number]) opened to sterile field. 10:21:08 TUBING High Pressure Extension Tubing (Santiago) ([id number]) opened to sterile field. 10:22:02 6 Fr AR1 guide catheter was inserted over the wire 10:22:07 BMW wire advanced. 10:22:23 Fentanyl 50 mcg I.V. was administered by Meño Garibay RN; for sedation; 10::27 Versed 1 mg I.V. was administered by Meño Garibay RN; for sedation; 10::43 Heparin Bolus 9500 units I.V. was administered by Meño Garibay RN; for anticoagulation; 10:23:20 Wire advanced across lesion. 10:26:12 Pre PCI Site: Vein Graft mCirc has 80% stenosis. 10:26:30 ACC Pre-intervention KAREN Flow is 3. 10:30:06 Place stent Inflation Number: 1 A ALEX OTW 3.5 x 30 stent ([id number]) was prepped and advanced across the Aorta Left -> Mid CX 80. The stent was deployed at 12 TJ for 0:14 (min:sec) . 10:30:55 Fentanyl 50 mcg I.V. was administered by Meño Garibay RN; for sedation; 10:31:00 Inflation number: 2 The stent balloon was then re-inflated across the Aorta Left -> Mid CX to 12 TJ for 0:10 (min:sec) . 10:32:16 Place stent Inflation Number: 1 A ALEX OTW 3.5 x 15 stent ([id number]) was prepped and advanced across the Aorta Left -> Prox CX 80. The stent was deployed at 12 TJ for 0:14 (min:sec) . 10:32:33 Wire removed. 10:32:34 Guide catheter removed. 10:33:58 Post PCI Site: Vein Graft pCirc has 0% stenosis. 10:34:10 Post PCI Site: [place] mCirc has 0% stenosis. 10:34:21 Sheath removed intact; hemostasis achieved with Exoseal to the Right Femoral artery. 10:34:54 EXOSEAL 6Fr (EX600) opened to sterile field. 10:35:10 ACT drawn and resulted at 337 seconds. (normal therapeutic range 180-240 seconds). 10:35:18 ACC Post-intervention KAREN Flow is 3. 10:35:38 Blood drawn for study. 10:35:51 Procedure ended.(Physican Out) 10:36:03 Fluoroscopy time 03.70 minutes. 10:36:09 Flurop Dose total: 648 10:36:09 Fluoroscopy dose: 648 mGy 10:36:16 Dose Area Product 94108 mGy/cm. 10:36:22 Contrast amount:Isovue 300 64ml. 10:36:29 Maximum allowable dose exceeded? No. 10:36:31 Sharps counted by scrub and verified by R.N. 10:36:33 Insertion/operative site no bleeding no hematoma. 10:36:39 Post Procedure Pulses reassessed and unchanged 10:36:51 Post procedure: right dorsailis pedis pulse 0-Absent. 10:36:56 Post procedure: left dorsailis pedis pulse 0-Absent. 10:37:18 Post-procedure physical assessment completed. ASA score P 3 - A patient with severe systemic disease as per Bunny Santiago MD. 10:37:21 Post procedure rhythm: unchanged. 10:37:25 Estimated blood loss: 10 ml 10:37:27 Post procedure instruction explained to patient.Patient verbalizes understanding. 10:37:50 Procedure and supply charges have been captured, reviewed, submitted and are correct. 10:38:40 Procedure Complication : No complications 10:38:43 Vital chart was stopped 10:38:47 See physician's report for complete and final results. 10:38:51 Report given to Pre/Post Procedure Room. 10:38:56 Patient transfered to Pre/Post Procedure Room with Stretcher. 10:39:00 Procedure ended. 10:39:00 Full Disclosure recording stopped 10:39:08 End room use (Document Last) Intervention Summary Intervention Notes Time ActionType Lesion and Equipment Action# Pressure Duration Attributes Used 10:30:06 Place stent Aorta Left ALEX OTW 3.5 1 12 00:14 -> Mid CX x 30 stent ([id number]) 10:31:00 Reinflate Aorta Left ALEX OTW 3.5 2 12 00:10 stent -> Mid CX x 30 stent balloon ([id number]) 10:32:16 Place stent Aorta Left ALEX OTW 3.5 1 12 00:14 -> Prox CX x 15 stent ([id number]) Device Usage Item Name Manufacture Quantity Catalog Hospital Part Current Mini mal Lot# / Number Charge Number Stock Stock Serial# Code GUIDE 6FR AR Medtronic 1 [id number] [id number] 15870 193267 1 1.0 catheter ([id number]) ACIST Syringe Acist 1 67131 605888 326777 768296 20 (44547) Medical Systems Inc Bag Decanter Microtek 1 2002S 133293 87237 473509 5 (2001S) Medical Inc. Medline Cath Medline 1 [id number] 271608 17880 329858 5 Pack ([id number]) ACIST Hand Acist 1 73625 942362 744965 906436 5 Control Medical (88244) Systems Inc ACIST Acist 1 76476 604104 546449 978561 5 Manifold Medical (21493) Systems Inc Tegaderm 4 x 3M 1 1626W 855906 444218 504257 5 4 (1626W) EMERALD Guide Cardinal 1 502-455 574798 705441 618063 5 Wire [facility] (502-455) INFLATOR Merit 1 YX6306 699755 780882 736407 15 [facility] Medical BasixCompak (AS5709) BMW 300cm [place] 1 [id number] 152351 219282 458951 5 Evening Shade 2 J Vascular wire (3776179N) TUBING High Merit 1 [id number] 676249 00895 592895 10 Pressure Medical Extension Tubing (Jack) (YE5423R) ALEX OTW 3.5 Medtronic 1 [id number] 256856 7283578 512223 5 [id number] x 30 stent ([id number]) ALEX OTW 3.5 Medtronic 1 [id number] 772210 2245747 366493 5 [id number] x 15 stent ([id number]) EXOSEAL 6Fr Cardinal 1 EX600 313162 529098 275395 10 (EX600) Health Signature Audit [place] Stage Time Signature Unsigned Intra-Procedure 04/23/2019 Mary Ponce 10:39:43 AM RT(R) Signatures Performing Physician : Signature : Bunny Santiago MD Date : Time : Monitor : Mary Kris Signature : RT Date : Time : Nurse : Elvira Wallace RN Signature : Date : Time : [address] [place] [address]
[~2019-04-23 06:39] MED LIST changes: +GEMFIBROZIL600 MG PO; +TOUJEO SOL300 UNIT/1 SC
[2019-04-23 07:19] VITALS: BP 155/72; Ht 172.7 cm; Wt 98.2 kg
[2019-04-23 07:38] LABS: ANION GAP 13.6 mmol/L (8-16); CALCIUM 8.8 mg/dL (8.5-10.1); CARBON DIOXIDE 25.5 mmol/L (21.0-32.0); CREATININE - SERUM 1.1 mg/dL (0.6-1.3); POTASSIUM - SERUM 4.1 mmol/L (3.5-5.1)
[2019-04-23 07:55] LABS: CHOL - HDL RATIO 2.7 ratio (2.3-4.9); LDL-HDL RATIO 1.4 ratio (1.5-3.5)
[2019-04-23 08:14] LABS: BASOPHILS 0.6 % (0-2); EOSINOPHILS 3.7 % (0-7); HEMATOCRIT 33.9 % (42.0-54.0); HEMOGLOBIN 11.6 g/dL (13.5-17.5); IMMATURE GRANULOCYTES 0.2 % (0-5); LYMPHOCYTES 47.4 % (15-50); MCH 31.4 pg (26.0-34.0); MCHC 34.2 g/dL (31.0-37.0); MCV 91.6 fL (80.0-100.0); MEAN PLATELET VOLUME 12.3 fL (7.4-10.4); MONOCYTES 9.1 % (2-11); PLATELET COUNT 241 10x3/uL (130-400); RDW 13.3 % (11.5-14.5); WBC 8.4 10x3/uL (4.8-10.8)
--- NOTE | 2019-04-23 10:50 | NUR ---
PT RECEIVED VIA STRETCHER FROM [employer]OTWE[employer] SALES COORDINATOR PER Tika ROBERTS RN. PT AWAKE, SLIGHTLY DROWSY. DENIES PAIN OR DISCOMFORT. IV PATENT INFUSING VIA ORDERS. R GROIN W 6FR EXOCELE, DRESSING CDI NO BLEEDING OR HEMATOMA NOTED. LEG PINK AND WARM, PEDAL PULSES PALPABLE. PT INSTRUCTED TO KEEP HEAD ON PILLOW AND LEG STRAIGHT, HE VERBALIZED UNDERSTANDING. MONITORS PLACED, HR NSR RATE 83, BP 177/90, O2 SAT 98 ON 2L/NC. CALL LIGHT IN REACH. NO FAMILY PRESENT.
--- NOTE | 2019-04-23 11:15 | NUR ---
PT AWAKE, STATES "IM DOING GREAT" DENIES PAIN. R GROIN SOFT, DRESSING CDI NO BLEEDING OR SWELLING NOTED. VSS. CALL LIGHT IN REACH. PT GIVEN URINAL PER REQUEST.
--- NOTE | 2019-04-23 12:00 | NUR ---
PT RESTING COMFORTABLY, R GROIN REMAINS SOFT, DRESSING CDI NO BLEEDING OR SWELLING NOTED. LEG PINK AND WARM, PEDAL PULSES PALPABLE VSS CALL LIGHT IN REACH
--- NOTE | 2019-04-23 12:43 | NUR ---
PT RESTING COMFORTABLY, DENIES PAIN OR DISCOMFORT. R GROIN DRESSING CDI NO BLEEDING OR SWELLING NOTED. LEG PINK AND WARM, PEDAL PULSES PALPABLE. HR 74, BP 130/76, O2 SAT 98. SPRITE GIVEN PER REQUEST, DENIES OTHER NEEDS AT THIS TIME. CALL LIGHT IN REACH
--- NOTE | 2019-04-23 13:05 | NUR ---
GROIN SOFT, DRESSING CDI NO BLEEDING OR SWELLING NOTED. LEG REMAINS WARM AND PINK, PEDAL PULSES PALPABLE. HR 74, BP 138/93, O2 SAT 98 ON 2L. CALL LIGHT IN REACH. TOLERATING FLUIDS W/O NAUSEA, DENIES PAIN OR NEEDS.
--- NOTE | 2019-04-23 13:40 | NUR ---
GROIN DRESSING REMAINS CDI, NO BLEEDING OR HEMATOMA NOTED. HOB ELEVATED 30DEGREES, SANDWICH TRAY SERVED. PT DENIES PAIN OR DISCOMFORT. CALL LIGHT IN REACH. VSS
--- NOTE | 2019-04-23 14:10 | NUR ---
PT TOLERATED LUNCH W/O NAUSEA. GROIN REMAINS SOFT, NO BLEEDING OR SWELLING NOTED. VSS. PT DENIES NEEDS.
--- NOTE | 2019-04-23 14:30 | NUR ---
DISCHARGE INSTRUCTIONS REVIEWED W PT, HE VERBALIZED UNDERSTANDING. PT INSTRUCTED ON IMPORTANCE OF CONTINUING PLAVIX AND ASA DAILY. IV REMOVED W CATH INTACT, MONITORS REMOVED AND PT UP TO DRESS FOR DISCHARGE.
== END 2019-04-23 15:30 | disposition home or self-care (01) ==
LOC: D.CATH 06:39
PROVIDERS: ATTEND Internal Medicine Cardiovascular Disease
DX: I25.719 Atherosclerosis of autologous vein coronary artery bypass graft(s) with unspecified angina pectoris (principal); Z01.812 Encounter for preprocedural laboratory examination

== ENCOUNTER → 2019-08-17 09:34 | Outpatient (CLI) | payer MEDICARE ==
[2019-04-23 07:19] VITALS: BMI 32.9
== END | disposition home or self-care (01) ==
LOC: D.CT 09:34
PROVIDERS: ATTEND Radiology Diagnostic Radiology
DX: I73.9 Peripheral vascular disease, unspecified (principal)

== ENCOUNTER → 2020-05-06 12:56 | Outpatient (CLI) | payer MEDICARE ==
[2019-04-23 07:19] VITALS: BMI 32.9
== END | disposition home or self-care (01) ==
LOC: D.HCCECHO 12:56
PROVIDERS: ATTEND Internal Medicine Cardiovascular Disease
DX: I34.0 Nonrheumatic mitral (valve) insufficiency (principal)

== ENCOUNTER → 2020-06-06 09:51 | Outpatient (CLI) | payer MEDICARE ==
[2019-04-23 07:19] VITALS: BMI 32.9
== END | disposition home or self-care (01) ==
LOC: D.HCCARDIO 09:51
PROVIDERS: ATTEND Internal Medicine Cardiovascular Disease
DX: I25.10 Atherosclerotic heart disease of native coronary artery without angina pectoris (principal)